=== PATIENT | male | born 1960 | race Two or more races ===

== ENCOUNTER → 2024-12-10 | Outpatient (CLI) | payer BC, SELFPAY ==
[2024-12-10 17:02] LABS: Albumin, Serum 4.3 gm/dL (3.4-4.8); Anion Gap 14 (7-16); BUN/Creatinine Ratio 10 Ratio (12-20); Blood Urea Nitrogen 10 mg/dL (9-23); Calcium 9.4 mg/dL (8.3-10.6); Calcium (Corrected) 9.4 mg/dL (8.5-10.1); Carbon Dioxide 23.1 mMol/L (20.0-31.0); Chloride 93 mMol/L (98-107); Glucose 70 mg/dL (74-106); Osmolality,Calculated 257 (275-295); Phosphorous 4.2 mg/dL (2.4-5.1); Potassium 4.9 mMol/L (3.4-5.1); Sodium 130 mMol/L (136-145); eGFR > 60 See Note
== END | disposition home or self-care (01) ==
LOC: COPL 14:48
PROVIDERS: PCP Internal Medicine; Referring Provider Internal Medicine; Visit Provider Internal Medicine
DX: I10 Essential (primary) hypertension (principal)
CPT/HCPCS: 36415; 80069

== ENCOUNTER 2024-12-17 12:45 | Day surgery (SDC) | payer BC, SELFPAY ==
[2024-12-16 10:59] VITALS: BMI 24.0
[2024-12-17] VITALS (12 sets, daily range): BP systolic 103–136; BP diastolic 64–86; PULSE 72–90; RESP 13–20; TEMP 36.2–36.3; O2SAT 94–99; BMI 23.7
[2024-12-17] MEDS: RINGERS LACTATED 1000 ML 1,000 ML 100 ML IV (13:49)
[2024-12-17] MEDS: DiphenhydrAMINE INJ 50 MG/ML VIAL 25 MG IV (13:51)
[2024-12-17] MEDS: fentaNYL CIT INJ 50 mCg/ML AMP 2ML (ASD USE ONLY) IV (13:52)
[2024-12-17] MEDS: MIDAZOLAM INJ 1 MG/ML VIAL 2 ML (ASD USE ONLY) 2 MG IV (13:55)
== END 2024-12-17 14:42 | disposition home or self-care (01) ==
PROVIDERS: PCP Internal Medicine; Referring Provider Surgery; Visit Provider Surgery
PROC: 0DBE8ZX Excision of Large Intestine, Via Natural or Artificial Opening Endoscopic, Diagnostic (ICD-10-PCS; CPT 45380; principal; 2024-12-17 13:45)
DX: Z12.11 Encounter for screening for malignant neoplasm of colon (principal); K57.30 Diverticulosis of large intestine without perforation or abscess without bleeding
CPT/HCPCS: 45378; J1200; J2250; J3010; J7120

== ENCOUNTER 2024-12-22 07:56 | Inpatient (IN) | payer BC, SELFPAY ==
[2024-12-22] VITALS (15 sets, daily range): BP systolic 150–191; BP diastolic 82–106; PULSE 69–102; RESP 12–28; TEMP 36.5–37.6; O2SAT 96–98; BMI 24.3; BMI 23.4
--- NOTE | 2024-12-22 08:29 | XR_ITS ---
Examination: AP chest single view Technique one AP portable sitting chest single view Exam date and time: December 22, 2024 0734 hours INDICATIONS: Onset chest pain and syncopal episode today. FINDINGS: Normal heart size. No aspiration pneumonia. The osseous structures are intact IMPRESSION: No aspiration pneumonia
--- NOTE | 2024-12-22 08:29 | XR_ITS ---
Examination: CTA chest with intravenous contrast 2-D reconstructions 3-D reconstructions, vascular Date and time of exam: December 22, 2024 1031 hours INDICATIONS: Onset chest pain with syncopal episodes today CTDI: vol (mGy) 13.7 DLP: (mGycm) 366 Technique: Multiple axial sections of the thorax have been obtained. 3 mm slice thickness, from below the hemidiaphragms to above the apices of the lungs. Mediastinal and lung density settings have been obtained. 2-D sagittal and coronal reconstructions. 3-D angiographic renderings, 3-D volume renderings, 3D post processing, vascular maximum intensity projections obtained. Contrast administered 60 cc Isovue-370 Low dose protocols were performed. One or more of the following dose reduction techniques were used; automated exposure control, adjustment of the mA and/or KV according to patient size, use of iterative reconstruction technique. Findings: No thoracic aortic aneurysm dilatation or dissection No pulmonary artery significant enlargement No pulmonary artery filling defects No paratracheal tracheobronchial or bronchopulmonary adenopathy 6 mm pulmonary nodule left upper lobe image 36 No pneumonia or pulmonary edema Severe diffuse fatty infiltration throughout the liver No definite gallstones No pancreatic or adrenal mass IMPRESSION: Negative for pulmonary artery emboli No pneumonia or pulmonary edema 6 mm pulmonary nodule left upper lobe, with this study as baseline recommend 6 month follow-up CT chest without contrast
--- NOTE | 2024-12-22 08:29 | EKG_ITS ---
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
[2024-12-22 09:38] LABS: Base Excess, Venous 0 (-3-3); O2 Saturation, Venous 90 % (96-97); PCO2, Venous 32 mmHg (36-56); PO2, Venous 54 mmHg (15-58); pH, Venous 7.47 (7.33-7.66)
[2024-12-22 09:39] LABS: Basophils % (Auto) 0 % (0-2.5); Eosinophils % (Auto) 0 % (0-10); Hematocrit 32.8 % (41.0-53.0); Hemoglobin 11.8 g/dL (13.5-16.0); Immature Granulocytes % (Auto) 0 % (0-0); Immature Granulocytes Auto 0.02 Thou/mm3 (0.00-0.00); Lymphocytes # (Auto) 0.5 Thou/mm3 (1.0-4.8); Lymphocytes % (Auto) 5 % (10-50); Mean Corpuscular Hemoglobin 33.1 pg (25.0-35.0); Mean Corpuscular Volume 92 fL (80-100); Monocytes # (Auto) 0.5 Thou/mm3 (0.0-0.8); Monocytes % (Auto) 6 % (0-12); Neutrophils # (Auto) 7.9 Thou/mm3 (1.8-7.7); Neutrophils % (Auto) 89 % (37-80); Nucleated Red Blood Cell % 0 /100 WBC (0); Platelet Count 255 Thou/mm3 (140-440); RDW Standard Deviation 41.1 fL (35.1-43.9); Red Blood Count 3.57 Miln/mm3 (4.50-5.90); White Blood Count 8.9 Thou/mm3 (3.8-10.6)
[2024-12-22 09:41] LABS: Lactate (Lactic Acid) 4.5 mMol/L (0.4-2.0)
[2024-12-22 10:02] LABS: B-Type Natriuretic Peptide < 20 pg/mL (0-100)
[2024-12-22 10:04] LABS: Alanine Aminotransferase 60 U/L (10-49); Albumin, Serum 4.3 gm/dL (3.4-4.8); Albumin/Globulin Ratio 1.3 (1.2-2.2); Alkaline Phosphatase 62 U/L (46-116); Anion Gap 13 (7-16); Aspartate Amino Transferase 62 U/L (0-34); BUN/Creatinine Ratio 14 Ratio (12-20); Bilirubin,Total 0.5 mg/dL (0.3-1.2); Blood Urea Nitrogen 14 mg/dL (9-23); Calcium 9.5 mg/dL (8.3-10.6); Calcium (Corrected) 9.5 mg/dL (8.5-10.1); Carbon Dioxide 23.1 mMol/L (20.0-31.0); Chloride 90 mMol/L (98-107); Estimated Creatinine Clearance 72.2 mL/min (>60); Globulin 3.4 gm/dL (2.3-3.5); Glucose 152 mg/dL (74-106); Lipase 45 U/L (12-53); Osmolality,Calculated 256 (275-295); Sodium 126 mMol/L (136-145); Total Protein 7.7 gm/dL (5.7-8.2); Troponin I < 0.020 ng/mL (0.0-0.045); eGFR > 60 See Note
[2024-12-22 10:07] LABS: Prothrombin Time 11.4 Seconds (9.0-12.2)
[2024-12-22] MEDS: ONDANSETRON INJ 2 MG/ML INJ 2 ML 4 MG IV (11:03)
[2024-12-22] MEDS: MORPHINE SULF INJ 10 MG/ML VIAL 4 MG IVP (11:03)
--- NOTE | 2024-12-22 11:56 | PD.EDSYNC ---
ED Syncope RME/HPI General Chief Complaint: Syncope / Near Syncope Stated Complaint: SYNCOPE Time Seen by Provider: 12/22/24 08:28 Arrival date/time: 12/22/24 07:56 RME / HPI RME / HPI narrative: DR. MCCOY MAIN ED EVALUATION: 64 year old male with past medical history significant for hypertension presents to the Emergency Department [facility] with complaint of syncope. Patient comes from [employer] and today he got up to use the restroom and had a syncopal episode. Patient himself does not remember fall or his head contusion. No other injuries or other symptoms reported. Last tetanus was last week. Related Data Home Medications ?Medication ?Instructions ?Recorded ?Confirmed azilsartan medoxomil 80 mg tablet 80 mg PO QDAY 12/17/24 12/17/24 (Edarbi) doxazosin 2 mg tablet 2 mg PO QDAY 12/17/24 12/17/24 metoprolol succinate 50 mg 50 mg PO .qhs 12/17/24 12/17/24 tablet,extended release 24 hr Allergies Allergy/AdvReac Type Severity Reaction Status Date / Time No Known Allergies Allergy Verified 12/17/24 13:05 Review of Systems Review of Systems Systems Reviewed: All systems reviewed, normal except as documented Narrative Review of Systems: Constitutional: DENIES: fevers; Eyes: DENIES: loss of vision; Head/Ear/Nose: DENIES: loss of hearing. Throat: DENIES: dysphagia. Cardiovascular: DENIES: chest pain, dyspnea, or syncope. Respiratory: DENIES: shortness of breath; Gastrointestinal: DENIES: rectal bleeding or melena. Genitourinary: DENIES: dysuria (painful or difficult urination); Musculoskeletal: DENIES: arthralgia (pain in a joint); Skin: DENIES: rash; Neurological: POSITIVES: syncopal episode, loss of memory, head contusion; DENIES: loss of function or movement; Psychiatric: DENIES: recent major life stressor, emotional problem, illicit drug use or abuse; Endocrinology: DENIES: weight change,; Hematologic/Lymphatic: DENIES: abnormal bruising. Allergic/Immunologic: DENIES: urticaria (hives). Past Medical History Past Medical History CARDIAC: Positive Hypertension Social History SMOKING STATUS: Never smoker SUBSTANCE USE: does not use ALCOHOL: Never ED Exam Narrative Physical exam: Physical Exam: General: The vital signs were reviewed. Has a hematoma to his forehead with a minimal abrasion on his eyebrow and the hematoma otherwise the patient is non-toxic, in no apparent distress and appears healthy with a patent airway, no respiratory distress and has no apparent circulatory problems. Head & Scalp: Normocephalic, atraumatic. Face: Appears normal and is without lesions, deformity. Ears: Left external pinna appears normal. Right external pinna appears normal. Eyes: The sclera is anicteric. No obvious photophobia. The Left and Right Orbit/Lid/Conjunctiva appears normal without swelling, discoloration or injection. Nose: The nose is without deformity, discharge or tenderness; Throat: Appears normal. The mucous membranes are pink and moist without exudates, redness or mass seen. The tongue appears normal. Neck: The neck is supple and no apparent mass or adenopathy. Chest: The chest wall is normal in size and symmetry and has no chest wall tenderness or crepitus. The patient displays normal ventilator effort without retractions, accessory muscle use and has adequate air movement bilaterally with no wheezes and no rales. Cardiovascular: Regular rate and rhythm; No murmurs, rubs, or gallops; Gastrointestinal: The abdomen appears normal. No obvious hernias or mass. The abdomen is soft and benign, non-distended, with no pain, no guarding and no rebound tenderness. Bowel sounds are present and normal sounding. No CVA tenderness. Genitourinary: Back/Spine: Extremities/Musculoskeletal/lymphatic: The bilateral upper and lower extremities are warm. There is no evidence of arterial insufficiency. There is no evidence of venous insufficiency/edema. The patient spontaneously moves bilateral upper and lower extremities with no pain and no limitation of movement. There is no apparent, injury or trauma. Skin: The skin is warm, dry and intact. No rashes. No petechia. No purpura. No abnormal bruising. The color is appropriate with no cyanosis. Mental status/Psychiatric: Mental status is appropriate for age. The patient has no apparent delusions, visual hallucinations, no apparent audible hallucinations. The patient has no apparent suicidal thoughts/ideation and no apparent homicidal thoughts/ideation. Neurological: The patient is awake, alert, interactive, cordial, cooperative and is oriented to name and situation. The patient follows commands and answers historical question with no impairment. There is no visual disturbance apparent. The pupils are equal and reactive bilaterally with normal eye movements and no diplopia The bilateral upper and lower extremities have normal strength, normal range of motion and normal functioning. The gait, station and balance appear to be baseline with no acute change Course Quality Measures none Orders Category Date Time Status CT Screening NOW Care 12/22/24 08:29 Active EKG (ED ONLY) *Do not use* NOW Care 12/22/24 08:[address] angio chest Stat Exams 12/22/24 08:[address] head/brain wo con Stat Exams 12/22/24 14:31 Completed EKG (ED Only) Stat Exams 12/22/24 08:29 Draft XR chest 1V portable Stat Exams 12/22/24 08:29 Completed B-Type Natriuretic Peptide Stat Lab 12/22/24 09:02 Completed Blood Culture (Lab) Stat Lab 12/22/24 09:02 Received CBC Stat Lab 12/22/24 09:02 Completed Comprehensive Metabolic Panel Stat Lab 12/22/24 09:02 Completed Drug Screen,Urine Stat Lab 12/22/24 12:50 Completed Lactate (Lactic Acid) Stat Lab 12/22/24 09:02 Completed Lactic Acid, 3 HR Stat Lab 12/22/24 13:07 Completed Lipase Stat Lab 12/22/24 09:02 Completed Magnesium Stat Lab 12/22/24 09:02 Completed Osmolality, Serum* Stat Lab 12/22/24 14:36 Ordered Osmolality, Urine* Stat Lab 12/22/24 14:36 Ordered Prothrombin Time with INR Stat Lab 12/22/24 09:02 Completed Sodium,Urine Random Stat Lab 12/22/24 14:36 Ordered T4 (Thyroxine) Stat Lab 12/22/24 14:48 Completed Thyroid Stimulating Hormone Stat Lab 12/22/24 14:48 Completed Troponin I Stat Lab 12/22/24 09:02 Completed Troponin I Stat Lab 12/22/24 14:48 Completed Urinalysis, C/S if Indicated Stat Lab 12/22/24 12:50 Completed Venous Blood Gas Stat Lab 12/22/24 09:02 Completed Morphine Inj Med 12/22/24 10:57 Discontinued 4 mg IVP X1 ONE Ondansetron Inj [Zofran Inj] Med 12/22/24 10:57 Discontinued 4 mg IV X1 ONE Sodium Chloride 0.9% 1000 ml [Ns] 1,000 ml Med 12/22/24 12:36 Discontinued IV 999 mls/hr Sodium Chloride 0.9% 1000 ml [Ns] 1,000 ml Med 12/22/24 14:45 Discontinued IV 999 mls/hr TET,DIP/PERT AC (Adult)-Tdap [Boostrix Adult (Tdap) Med 12/22/24 14:30 Discontinued Vacc] 0.5 ml IMI .ONCE ONE Vital Signs Vital signs: Vital Signs Temperature 97.7 F 12/22/24 08:09 Pulse Rate 95 12/22/24 08:09 Respiratory Rate 17 12/22/24 08:09 Blood Pressure 150/83 H 12/22/24 08:09 Pulse Oximetry (%) 96 12/22/24 08:09 Oxygen Delivery Method Room Air 12/22/24 08:09 Syncope MDM Narrative MDM Narrative:: Patient presents with a syncopal event while at work at the [employer] system. He has never had a syncopal event before. It was witnessed by one of his coworkers states that within 30 seconds he was pretty much back to his baseline there was no tonic-clonic activity noted. There is no history of seizures. He has no chest pain no shortness of breath. He fell and hit his head has a small hematoma 3 cm on the left forehead. With a slight abrasion. No laceration or repair is required. Medical workup for syncope was initiated with the following results and note at 1300 hrs. the UA is still not back or collected. White count is 8.9 hemoglobin is 11.8 MCV is 92 is got 89% neutrophils PT/INR 11.4 and 1.0 venous blood gas shows a pH of 747 pCO2 of 32 consistent with a metabolic alkalosis by the way there is no noted hyperventilation or anxiety issue noted. Sodium is slightly low at 126 potassium 4.0 chloride is 90 CO2 23 anion gap 13 BUN 14 creatinine 1.0 glucose is 152 osmolality slightly low at 256 lactic acid came back elevated 4.5 there is no old 1 to compare to. Calcium is normal at 9.5 bilirubin is total is 0.5 and AST ALT are 62 and 60 respectively. EKG was done she reveals some borderline sinus tachycardia there was no ST elevation GA noted. Chest x-ray reveals no hemopneumothorax normal heart silhouette lung esquivel are clear because of the syncope a chest CT was done which reveals no PE there is no pneumonia there is no pneumonia. There is an incidental small nodule of uncertain significance that will need follow-up. Reevaluation of the patient at 1230 reveals the patient be alert awake there is no nausea vomiting he is actually hungry. Nurse was going to try to get some urine out of him I am also giving him a liter of fluid as patient reports he holds his urine for long periods of time while on duty. There is no chest infection going on there is no obvious flu symptoms. And the etiology of the syncope so far is unclear. Because he is mentating well the has not been vomiting I see no reason to scan his head. He is not on blood thinners CT read by myself reveals no obvious acute blood. There is a little atrophy superior aspect of the cortices.. There is no fracture and some interesting calcification in the parenchyma of uncertain etiology consider cysticercosis Formal read is still pending. I called back Dr. Krishnan and evidently Dr. Wood will be admitting this patient for syncope. Diane Graves, am scribing for and in the presence of Dr. Mccoy. Patient data External records reviewed:: EMS form Clinical information provided by:: patient, EMS and law enforcement Social determinants that could affect healthcare access:: none Patient has the following chronic illnesses:: hypertension How is presenting disease/condition affected by chronic disease/condition?: uneffected by Evaluation data The following diagnostics were reviewed and interpreted by me:: lab results, radiology exam(s) and EKG tracing(s) (EKG#1: EKG at 0917 hours. Interpreted by me: sinus rhythm, rate 98, no STEMI) Lab and/or radiology exams considered but not ordered:: none Interpretation Summary: See above under MDM narrative. RADIOLOGY Procedure(s): XR chest 1V portable Accession Number(s): [id number] cc: Romel Mccoy MD; David Tyson MD~ Examination: AP chest single view Technique one AP portable sitting chest single view Exam date and time: December 22, 2024 0734 hours INDICATIONS: Onset chest pain and syncopal episode today. FINDINGS: Normal heart size. No aspiration pneumonia. The osseous structures are intact IMPRESSION: No aspiration pneumonia Dictated By: David Tyson MD Procedure(s): CT angio chest Accession Number(s): [id number] cc: Romel Mccoy MD; David Tyson MD; NO PRIMARY/FAMILY,PHYSICIAN~ Examination: CTA chest with intravenous contrast 2-D reconstructions 3-D reconstructions, vascular Date and time of exam: December 22, 2024 1031 hours INDICATIONS: Onset chest pain with syncopal episodes today CTDI: vol (mGy) 13.7 DLP: (mGycm) 366 Technique: Multiple axial sections of the thorax have been obtained. 3 mm slice thickness, from below the hemidiaphragms to above the apices of the lungs. Mediastinal and lung density settings have been obtained. 2-D sagittal and coronal reconstructions. 3-D angiographic renderings, 3-D volume renderings, 3D post processing, vascular maximum intensity projections obtained. Contrast administered 60 cc Isovue-370 Low dose protocols were performed. One or more of the following dose reduction techniques were used; automated exposure control, adjustment of the mA and/or KV according to patient size, use of iterative reconstruction technique. Findings: No thoracic aortic aneurysm dilatation or dissection No pulmonary artery significant enlargement No pulmonary artery filling defects No paratracheal tracheobronchial or bronchopulmonary adenopathy 6 mm pulmonary nodule left upper lobe image 36 No pneumonia or pulmonary edema Severe diffuse fatty infiltration throughout the liver No definite gallstones No pancreatic or adrenal mass IMPRESSION: Negative for pulmonary artery emboli No pneumonia or pulmonary edema 6 mm pulmonary nodule left upper lobe, with this study as baseline recommend 6 month follow-up CT chest without contrast Dictated By: David Tyson MD Medications / Prescriptions Medications or Prescriptions considered but not ordered:: none Medication administrations:: Medication Administration History Discontinued Medications Diphtheria/Tetanus/Acell Pertussis (Diphth,Pertuss(Acell),Tet Vac 0.5 Ml Syr- Adult) 0.5 ml IMi .ONCE ONE Stop: 12/22/24 14:31 Last Admin: 12/22/24 14:58 Dose: Not Given Documented By: DANIELA Non-Admin Reason: Patient Exempt Sodium Chloride (Ns) 1,000 mls @ 999 mls/hr IV .Q1H1M ONE Stop: 12/22/24 13:36 Last Infusion: 12/22/24 14:36 Dose: Infused Documented By: Admin: 12/22/24 12:55 Dose: 999 mls/hr Documented By: DANIELA Sodium Chloride (Ns) 1,000 mls @ 999 mls/hr IV .Q1H1M ONE Stop: 12/22/24 15:45 Last Admin: 12/22/24 14:55 Dose: 999 mls/hr Documented By: DANIELA Morphine Sulfate (Morphine Sulf Inj 10 Mg/Ml Vial) 4 mg IVP X1 ONE Stop: 12/22/24 10:58 Last Admin: 12/22/24 11:03 Dose: 4 mg Documented By: DANIELA Ondansetron HCl (Ondansetron Inj 2 Mg/Ml Inj 2 Ml) 4 mg IV X1 ONE; Protocol Stop: 12/22/24 10:58 Last Admin: 12/22/24 11:03 Dose: 4 mg Documented By: DANIELA see above Consultations Consultation(s) initiated? (list below): Yes Consultation #1 (Physician, Specialty, Details): Discussed test HPI, PMHx, lab, radiology results and/or management with hospitalist. Will admit for further evaluation and management. But first would like a head CT to be back negative. Time: 14:31 Diagnosis Syncope Differential Diagnosis: syncope due to orthostatic hypotension, vasovagal syncope, subarachnoid hemorrhage, pulmonary embolism and dehydration Most likely diagnosis given after review of the tests above:: see below Admission Indicated Admission indicated?: indicated Admission Request Was there a request for admission?: Yes Admission Attestation Admission request attestation: Discussed case with [] from Hospitalist service regarding admission. Discussed patients ED course, exam findings, labs, and radiology results. The Hospitalist [agrees,declines] to accept the patient for admission. Disposition Plan Disposition Plan: Admit Discharge Plan Plan Patient Disposition: Admit Acute Care w/in Hospital Disposition Comment: Hospitalist to admit Prescriptions/Referrals Prescriptions/Med Rec: No Action metoprolol succinate 50 mg tablet extended release 24 hr 50 mg PO .qhs Patient Comments: TAKE 1 TABLET BY MOUTH AT BEDTIME doxazosin 2 mg tablet 2 mg PO QDAY Patient Comments: TAKE 1 TABLET BY MOUTH DAILY Edarbi 80 mg tablet 80 mg PO QDAY Patient Comments: TAKE 1 TABLET BY MOUTH DAILY Referrals: No Primary/Family,Physician [Primary Care Provider] - In 1 week Problem List Clinical Impression: Syncope, Acute hyponatremia, Elevated lactic acid level, Contusion of head, Hematoma Patient/Caregiver Discharge Instructions Print Language: Italian Stand Alone Forms: Caitlyn Award Info., Patient Portal Info Letter
[2024-12-22 12:28] LABS: Reflex Lactate? Y
[2024-12-22] MEDS: SODIUM CHLORIDE 0.9% 1000 ML 1,000 ML 999 ML IV ×2 (12:55→14:55)
[2024-12-22 13:07] LABS: Squamous Epithelial Cell,Urine 0 /hpf (0-5)
[2024-12-22 13:11] LABS: Lactic Acid, 3 HR 3.2 mMol/L (0.4-2.0)
[2024-12-22 13:28] LABS: Bilirubin,Urine Negative (Negative); Blood,Urine Negative (Negative); Clarity,Urine Clear (Clear/Hazy); Culture Indicated,Urine Not Indicated; Glucose, Urine Trace (Negative); Ketones,Urine Trace (Negative); Leukocyte Esterase,Urine Negative (Negative); Nitrite,Urine Negative (Negative); PH,Urine 6.5 (5.0-7.0); Protein,Urine Negative (Neg - Trace); RBC,Urine 1 /hpf (0-3); Specific Gravity,Urine 1.029 (1.001-1.035); Urobilinogen,Urine Negative mg/dL (0.0-1.0); WBC,Urine 1 /hpf (0-5)
[2024-12-22 13:32] LABS: Collection Type, Urine Clean Catch; Color,Urine Lt-Yellow (Lt Yel-Yel)
[2024-12-22 13:44] LABS: Amphetamine/Methamp Scrn,U Negative (Negative); Barbiturate Screen,Urine Negative (Negative); Benzodiazepines Screen,Urine Negative (Negative); Benzoylecgonine Screen, Ur Negative (Negative); Fentanyl Screen,Urine Negative (Negative); Opiate Screen,Urine Positive (Negative); THC Screen,Urine Negative (Negative)
--- NOTE | 2024-12-22 14:31 | XR_ITS ---
Examination: CT brain head without contrast. 2-D sagittal coronal reconstructions Date and time of exam:December 22, 2024 at 1510 hours INDICATIONS: Syncopal episode today, patient fell with injury to the head CTDI: vol (mGy):52.4 DLP: (mGycm):1079 Technique: Multiple CT axial sections of the brain have been obtained, 5 mm slice thickness. Contrast has not been administered. 2-D sagittal, coronal reconstructions have been obtained Low dose protocols were performed. One or more of the following dose reduction techniques were used; automated exposure control, adjustment of the mA and/or KV according to patient size, use of iterative reconstruction technique. Findings: No significant ventricular enlargement. Intra-axial or extra-axial hemorrhage density is not seen. No mass effect or midline shift Basal cisterns are not remarkable. Fourth ventricle is midline. Cranial vault intact. Soft tissue left frontal scalp swelling Significant left frontal left ethmoid sinusitis Impression: Negative for acute hemorrhage, mass effect or midline shift
[2024-12-22 15:20] LABS: T4 (Thyroxine) 4.3 mcg/dL (4.5-10.9); Thyroid Stimulating Hormone 0.45 uIU/mL (0.55-4.78); Troponin I < 0.020 ng/mL (0.0-0.045)
--- NOTE | 2024-12-22 18:23 | XR_ITS ---
Examination: Abdomen sonogram, Limited Date and time of exam: December 22, 2024 1841 hours INDICATIONS: Alcohol abuse history, elevated liver function tests on laboratory examination today Technique: Real-time iglesias scale transabdominal sonographic images of the upper abdomen obtained. Findings: Normal gallbladder Normal common bile duct 0.32 cm Pancreas obscured by bowel gas Liver 16 cm fatty infiltration Normal hepatopedal portal venous flow Patent IVC IMPRESSION: Normal gallbladder Mild hepatomegaly fatty infiltration
[2024-12-22] MEDS: MORPHINE SULF INJ 10 MG/ML VIAL 2 MG IVP (18:27)
[2024-12-22] MEDS: SODIUM CHLORIDE 0.9% 1000 ML 1,000 ML 80 ML IV (18:35)
[2024-12-22 18:59] LABS: Creatine Kinase 307 U/L (34-171); Sodium 133 mMol/L (136-145)
--- NOTE | 2024-12-22 20:11 | ESHP_ITS ---
<Statement entered by Daljit Hope MD - 12/22/24 20:37> This patient is a 64-year-old male with past medical history of hypertension was brought in from the senior living with complaint of syncope. Patient got up to use the restroom and had a syncopal episode and hit his head on the ground. He did not recall fall or head contusion. No other injuries were reported. Tetanus toxoid, 2 L bolus of fluid and morphine was given. Vitals showed elevated blood pressure 170/96. He was saturating well on room air and afebrile. Labs were significant for normocytic anemia coagulation panel unremarkable. Chemistry panel was significant for hyponatremia sodium 126 with serum osmolality 256. Lactic acid was 4.5 down trended to 3.2. Kidney functions show baseline creatinine 1.0. A1c from 2023 5.8. Troponin I was negative. Mildly elevated AST and ALT. UA was negative. U tox positive for opiates. Chest x-ray showed no aspiration pneumonia. Chest CT was significant for 6 mm pulmonary nodule left upper lobe. EKG showed sinus rhythm with QTc 425. Blood cultures were sent. Patient is admitted for workup of syncope. Will likely order urine electrolytes, started on fluids continue to monitor sodium every [address] showed no acute changes. We admit the patient for syncope versus seizure workup as well as hyponatremia. Neurology has been consulted to evaluate the for seizures. Ordered creatinine kinase. Will likely do an EEG as well to rule out seizures. Sodium corrected quickly therefore we stopped normal saline and started D5W at 100 cc/h. Patient has a history of alcohol use therefore CIWA protocol was added. Continue with neurochecks. Will follow-up with the EEG and orthostatic vitals. All labs and orders were reviewed. I saw and examined the patient, and I agree with current management stated by Dr Christina MD,PGY1. Plan of care was discussed with the attending physician and resident physician. Disclaimer: Despite multiple revisions, due to the dictation software being used, the document bellow may not be free of grammatical errors including phonetic/typographic errors. However, this does not deter from our commitment to providing health care in the patient's best interest in mind. Dr. Joao MD, PGY 2 Documentation for date of: 12/22/24 HPI History of Present Illness History of present illness: Maximo Summers is a 64-year-old male with a past medical history of hypertension who presents to the ED after syncopal episode leading to ground-level fall with head strike. Event was witnessed by coworker (not present at bedside), and reported that patient fell forward onto his head and was unconscious for 10 to 15 seconds without any seizure-like activity noted. Patient does not recall falling, was not confused afterwards, did not bite his lips or cheeks, but did have an episode of urinary incontinence. He does not recall any focal weakness or paresthesias prior to event. States that he has not had a history of syncopal events. In ED, BP 150/83 but otherwise vital signs stable. Labs significant for hemoglobin of 11.8, Na of 126, serum osmolality of 256, lactate of 4.5, AST 62, ALT 60, troponin and BNP negative. EKG showed sinus rhythm, CXR negative. CT head negative for acute hemorrhage, mass effect, or midline shift. Admitted for further management of chronic hyponatremia and workup for syncope. PMHx: Hypertension Medications: Doxazosin, Edarbi, metoprolol succinate SHx: Endorses drinking 2-4 beers on most days with some days drinking up to 12- 18 beers per day, denies smoking cigarettes or illicit drug use Review of Systems Review of Systems Systems Reviewed: All systems reviewed, normal except as documented Exam Vital Signs Temp Pulse Resp BP Pulse Ox O2 Del Method 99.7 F 82 12 188/100 H 96 Room Air 12/22/24 18:36 12/22/24 19:42 12/22/24 18:36 12/22/24 19:42 12/22/24 18:36 12/22/24 18:36 Narrative Exam General: AOx3, no acute distress, able to speak full sentences HEENT: Small contusion above forehead, NC/AT, mucous membranes moist, bilateral sclera anicteric Cardiovascular: regular rate and rhythm, S1/S2 present, no murmurs appreciated Pulmonary: clear to auscultation bilaterally, no rales/rhonchi/wheezes Abdominal: soft, non-tender, non-distended, no rebound/guarding, normal bowel sounds present Musculoskeletal: normal ROM, no peripheral edema Skin: warm and dry, intact, no rashes Neuro: CN II-XII intact, no focal deficits, strength 5 out of 5 bilaterally in upper and lower extremities, sensation grossly intact Results: Labs 12/22/24 09:02 12/22/24 18:30 Labs: Short CBC 12/22/24 Range/Units 09:02 WBC 8.9 (3.8-10.6) Thou/mm3 Hgb 11.8 L (13.5-16.0) g/dL Hct 32.8 L (41.0-53.0) % Plt Count 255 (140-440) Thou/mm3 BMP 12/22/24 12/22/24 09:02 18:30 Sodium 126 L 133 L Potassium 4.0 Chloride 90 L Carbon Dioxide 23.1 BUN 14 Creatinine 1.0 Glucose 152 H Calcium 9.5 Cardiac Enzymes 12/22/24 12/22/24 12/22/24 Range/Units 09:02 14:48 18:30 Total Creatine Kinase 307 H (34-171) U/L Troponin I < 0.020 < 0.020 (0.0-0.045) ng/mL Liver Function 12/22/24 Range/Units 09:02 Total Bilirubin 0.5 (0.3-1.2) mg/dL AST 62 H (0-34) U/L ALT 60 H (10-49) U/L Alkaline Phosphatase 62 (46-116) U/L Albumin 4.3 (3.4-4.8) gm/dL Urine 12/22/24 Range/Units 12:50 Urine Color Lt-Yellow (Lt Yel-Yel) Urine Clarity Clear (Clear/Hazy) Urine pH 6.5 (5.0-7.0) Ur Specific [place] 1.029 (1.001-1.035) Urine Protein Negative (Neg - Trace) Urine Glucose (UA) Trace (Negative) ABG Interpretation ABG results: 12/22/24 09:02 VBG pH 7.47 VBG pCO2 32 L VBG pO2 54 VBG Base Excess 0 Quality Measures Quality Measures none Medications Home Medications and Allergies Home Medications ?Medication ?Instructions ?Recorded ?Confirmed ?Type azilsartan medoxomil 80 mg tablet 80 mg PO QDAY 12/17/24 History (Edarbi) doxazosin 2 mg tablet 2 mg PO QDAY 12/17/24 History metoprolol succinate 50 mg 50 mg PO .qhs 12/17/2411/29 History tablet,extended release 24 hr Allergies Allergy/AdvReac Type Severity Reaction Status Date / Time No Known Allergies Allergy Verified 12/22/24 20:49 Visit Medications Acetaminophen (Acetaminophen 325 Mg Tablet) 650 mg PO Q6H PRN PRN Reason: PAIN OR FEVER > 100.4 Stop: 01/21/25 17:56 Hydrocodone Bitart/Acetaminophen (Hydrocodone/Apap 5/325 Tablet) 1 tab PO Q6HR PRN PRN Reason: PAIN SCALE 4-10(Mod-Sev Stop: 12/27/24 17:56 Heparin Sodium (Porcine) (Heparin Sod Inj 5000 Unit/Ml Vial) 5,000 unit SC BID JOSEFA Stop: 01/05/25 20:59 Dextrose (D5w) 1,000 mls @ 100 mls/hr IV .Q10H JOSEFA Stop: 12/23/24 05:29 Morphine Sulfate (Morphine Sulf Inj 10 Mg/Ml Vial) 2 mg IVP Q4HR PRN PRN Reason: BREAKTHROUGH PAIN Stop: 12/27/24 17:56 Last Admin: 12/22/24 18:27 Dose: 2 mg Ondansetron HCl (Ondansetron Inj 2 Mg/Ml Inj 2 Ml) 4 mg IV Q6H PRN; Protocol PRN Reason: NAUSEA OR VOMITING Stop: 01/21/25 17:56 Discontinued Medications Diphtheria/Tetanus/Acell Pertussis (Diphth,Pertuss(Acell),Tet Vac 0.5 Ml Syr- Adult) 0.5 ml IMi .ONCE ONE Stop: 12/22/24 14:31 Last Admin: 12/22/24 14:58 Dose: Not Given Sodium Chloride (Ns) 1,000 mls @ 999 mls/hr IV .Q1H1M ONE Stop: 12/22/24 13:36 Last Infusion: 12/22/24 14:36 Dose: Infused Sodium Chloride (Ns) 1,000 mls @ 999 mls/hr IV .Q1H1M ONE Stop: 12/22/24 15:45 Last Infusion: 12/22/24 15:56 Dose: Infused Sodium Chloride (Ns) 1,000 mls @ 80 mls/hr IV .[id number] JOSEFA Stop: 12/23/24 18:14 Last Admin: 12/22/24 18:35 Dose: 80 mls/hr Morphine Sulfate (Morphine Sulf Inj 10 Mg/Ml Vial) 4 mg IVP X1 ONE Stop: 12/22/24 10:58 Last Admin: 12/22/24 11:03 Dose: 4 mg Ondansetron HCl (Ondansetron Inj 2 Mg/Ml Inj 2 Ml) 4 mg IV X1 ONE; Protocol Stop: 12/22/24 10:58 Last Admin: 12/22/24 11:03 Dose: 4 mg Assessment & Plan Plan Maximo Kay is a 64-year-old male with a past medical history of hypertension is admitted for management of syncopal event with ground-level fall and chronic hyponatremia. #Syncope secondary to vasovagal vs seizure #Ground-level fall with head strike Presented with syncopal event associated with bowel movement, causing ground- level fall and head strike. Has never happened before. No reported seizure- like activity or postictal state but did have episode of urinary incontinence. No history of arrhythmias, no murmurs heard on auscultation, and no FNDs/slurred speech/facial droop. CT head negative for hemorrhage, mass effect, or midline shift. EKG showed normal sinus rhythm. Lactate of 4.5 that downtrended to 3.2 after 2 L IVF. Total CK 307. ? Neurology consulted, appreciate recommendations ? EEG ordered ? Follow-up orthostatic vitals ? Neurochecks ? Will defer echo for now given that no murmurs auscultated on exam #Hypoosmolar hyponatremia Received 2 L IVF in ED. Serum osm 256. Initial sodium of 126, with goal corrected rate of 4-6 mMol/L in 24 hours. ? Repeat Na increased to 133 so D5W started at 100 cc/h (1 L) ? Every 4 sodium checks ? Urine osm #Alcohol dependence #Mild transaminitis Endorses drinking 2-4 beers per day, with days drinking 12-18 beers per day. Abdominal ultrasound showed mild hepatomegaly with fatty infiltration. AST 62, ALT 60. ? CIWA protocol #Secondary hypothyroidism TSH 0.45, T44.3. Consider starting levothyroxine. #Pulmonary nodule 6 mm pulmonary nodule left upper lobe. ? Recommend 6-month follow-up CT without contrast outpatient Hospital management: Disposition: Pending syncope workup and management of hyponatremia Fluids: D5W Diet: Low-sodium Lines: PIV DVT prophylaxis: Heparin SC BID GI prophylaxis: Not indicated CODE STATUS: full code ----- Plan discussed with attending physician Dr. Wood and senior resident physician Dr. Joao Vasquez MD PGY-1 Internal Medicine
[2024-12-22] MEDS: THIAMINE 100 MG TABLET PO (21:30)
[2024-12-22] MEDS: FOLIC ACID 1 MG TABLET PO (21:30)
[2024-12-22] MEDS: HEPARIN SOD INJ 5000 UNIT/ML VIAL SC (21:31)
[2024-12-22] MEDS: DEXTROSE 5%-WATER 1,000 ML 100 ML IV (21:44)
[2024-12-22] MEDS: METOPROLOL SUCCINATE XL 25 MG TABCR 50 MG PO (21:44)
--- NOTE | 2024-12-22 21:55 | PC.NURSE ---
Report given to ASHA Merchant
[2024-12-22 22:03] LABS: Sodium,Urine Random 27.2 mMol/L (20.0-110.0)
[2024-12-22] MEDS: DOXAZOSIN MESYLATE 2 MG TABLET PO (22:56)
[2024-12-23] VITALS (11 sets, daily range): BP systolic 140–169; BP diastolic 75–95; PULSE 60–99; RESP 17–20; TEMP 36.1–36.7; O2SAT 96–99
[2024-12-23 00:41] LABS: Lactate (Lactic Acid) 1.5 mMol/L (0.4-2.0)
[2024-12-23 05:51] LABS: Lactate (Lactic Acid) 0.7 mMol/L (0.4-2.0)
[2024-12-23] MEDS: HYDROcodone/APAP 5/325 TABLET 1 TAB PO ×3 (05:58→19:43)
[2024-12-23 06:03] LABS: Basophils % (Auto) 0 % (0-2.5); Eosinophils % (Auto) 0 % (0-10); Hematocrit 31.3 % (41.0-53.0); Hemoglobin 11.2 g/dL (13.5-16.0); Immature Granulocytes % (Auto) 0 % (0-0); Immature Granulocytes Auto 0.01 Thou/mm3 (0.00-0.00); Lymphocytes % (Auto) 20 % (10-50); Mean Corpuscular HGB Conc 35.8 g/dl (31.0-37.0); Mean Corpuscular Volume 92 fL (80-100); Monocytes # (Auto) 0.8 Thou/mm3 (0.0-0.8); Monocytes % (Auto) 16 % (0-12); Neutrophils # (Auto) 3.1 Thou/mm3 (1.8-7.7); Neutrophils % (Auto) 63 % (37-80); Nucleated Red Blood Cell % 0 /100 WBC (0); Platelet Count 218 Thou/mm3 (140-440); RDW Standard Deviation 41.5 fL (35.1-43.9); Red Blood Count 3.39 Miln/mm3 (4.50-5.90); White Blood Count 4.9 Thou/mm3 (3.8-10.6)
[2024-12-23 06:33] LABS: Alanine Aminotransferase 42 U/L (10-49); Albumin, Serum 3.7 gm/dL (3.4-4.8); Albumin/Globulin Ratio 1.3 (1.2-2.2); Alkaline Phosphatase 53 U/L (46-116); Anion Gap 8 (7-16); Aspartate Amino Transferase 39 U/L (0-34); BUN/Creatinine Ratio 9 Ratio (12-20); Bilirubin,Total 0.9 mg/dL (0.3-1.2); Blood Urea Nitrogen 7 mg/dL (9-23); Calcium 8.7 mg/dL (8.3-10.6); Calcium (Corrected) 8.9 mg/dL (8.5-10.1); Carbon Dioxide 24.5 mMol/L (20.0-31.0); Chloride 98 mMol/L (98-107); Creatinine (Component) 0.8 mg/dL (0.6-1.3); Estimated Creatinine Clearance 90.3 mL/min (>60); Globulin 2.9 gm/dL (2.3-3.5); Glucose 81 mg/dL (74-106); Magnesium 2.1 mg/dL (1.6-2.6); Osmolality,Calculated 257 (275-295); Phosphorous 3.6 mg/dL (2.4-5.1); Sodium 130 mMol/L (136-145); Total Protein 6.6 gm/dL (5.7-8.2); eGFR > 60 See Note
[2024-12-23] MEDS: METOPROLOL SUCCINATE XL 25 MG TABCR 50 MG PO (09:10)
[2024-12-23] MEDS: FOLIC ACID 1 MG TABLET PO ×2 (09:10→21:17)
[2024-12-23] MEDS: HEPARIN SOD INJ 5000 UNIT/ML VIAL SC ×2 (09:11→21:17)
[2024-12-23] MEDS: THIAMINE 100 MG TABLET PO ×2 (09:13→21:17)
[2024-12-23 09:29] LABS: Sodium 129 mMol/L (136-145)
--- NOTE | 2024-12-23 10:50 | CHAP ---
Patient was visited by a Spiritual Care Volunteer on 12/23/2024 between 0910 and [id number] and received comfort, encouragement and/or prayer.
--- NOTE | 2024-12-23 11:12 | ESPR_ITS ---
<Statement entered by Daljit Hope MD - 12/23/24 14:43> Patient was seen and examined at the bedside. No acute overnight events were reported. No episodes of syncope or seizures were recorded. Vitals were stable. Overnight, patient's sodium rapidly corrected therefore D5W at 100 cc was given. Current sodium at 129. Hemoglobin around 11. Currently waiting for EEG and further neurology recommendations. PT evaluation pending. All labs and orders were reviewed. I saw and examined the patient, and I agree with current management stated by Dr Christina MD,PGY1. Plan of care was discussed with the attending physician and resident physician. Disclaimer: Despite multiple revisions, due to the dictation software being used, the document bellow may not be free of grammatical errors including phonetic/typographic errors. However, this does not deter from our commitment to providing health care in the patient's best interest in mind. Dr. Herminia MD, PGY 2 Documentation for date of: 12/23/24 Subjective Subjective Interval history: Maximo Summers is a 64-year-old male with a past medical history of hypertension who presents to the ED after syncopal episode leading to ground-level fall with head strike. Event was witnessed by coworker (not present at bedside), and reported that patient fell forward onto his head and was unconscious for 10 to 15 seconds without any seizure-like activity noted. Patient does not recall falling, was not confused afterwards, did not bite his lips or cheeks, but did have an episode of urinary incontinence. He does not recall any focal weakness or paresthesias prior to event. States that he has not had a history of syncopal events. Admitted for further management of chronic hyponatremia and workup for syncope. 12/23: No acute overnight events noted. No additional episodes of syncope, denies weakness or paresthesia, or any other symptoms at this time. Updated on current plans, including neurology consult and pending EEG. Exam Vital Signs Temp Pulse Resp BP Pulse Ox O2 Del Method 97.1 F 90 18 145/85 H 99 Room Air 12/23/24 08:00 12/23/24 09:10 12/23/24 08:00 12/23/24 09:10 12/23/24 08:00 12/23/24 08:00 Narrative Exam General: AOx3, no acute distress, able to speak full sentences HEENT: Small contusion above forehead, NC/AT, mucous membranes moist, bilateral sclera anicteric Cardiovascular: regular rate and rhythm, S1/S2 present, no murmurs appreciated Pulmonary: clear to auscultation bilaterally, no rales/rhonchi/wheezes Abdominal: soft, non-tender, non-distended, no rebound/guarding, normal bowel sounds present Musculoskeletal: normal ROM, no peripheral edema Skin: warm and dry, intact, no rashes Neuro: CN II-XII intact, no focal deficits, strength 5 out of 5 bilaterally in upper and lower extremities, sensation grossly intact Objective Labs 12/24/24 04:49 12/24/24 04:49 Labs: Laboratory Results - last 24 hr 12/22/24 12/22/24 12/22/24 12:50 13:07 14:48 WBC RBC Hgb Hct MCV MCH MCHC RDW Std Deviation Plt Count Neut % (Auto) Lymph % (Auto) [facility] % (Auto) Eos % (Auto) Baso % (Auto) Neut # (Auto) Lymph # (Auto) [facility] # (Auto) Eos # (Auto) Baso # (Auto) Immature Gran # (Auto) Absolute Nucleated RBC Immature Gran % Nucleated RBC % Sodium Potassium Chloride Carbon Dioxide Anion Gap BUN Creatinine Estim Creat Clear Calc eGFR BUN/Creatinine Ratio Glucose Calculated Osmolality Lactic Acid 3.2 H Calcium Corrected Calcium Phosphorus Magnesium Total Bilirubin AST ALT Alkaline Phosphatase Total Creatine Kinase Troponin I < 0.020 Total Protein Albumin Globulin Albumin/Globulin Ratio TSH 0.45 L Thyroxine (T4) 4.3 L Ur Collection Type Clean Catch Urine Color Lt-Yellow Urine Clarity Clear Urine pH 6.5 Ur Specific [place] 1.029 Urine Protein Negative Urine Glucose (UA) Trace Urine Ketones Trace Urine Blood Negative Urine Nitrite Negative Urine Bilirubin Negative Urine Urobilinogen (Auto) Negative Ur Leukocyte Esterase Negative Urine RBC 1 Urine WBC 1 Ur Squamous Epith Cells 0 Urine Bacteria None Ur Culture Indicated? Not Indicated Ur Random Sodium Urine Opiates Screen Positive A Urine Fentanyl Screen Negative Ur Barbiturates Screen Negative U Amphetamin/Meth Scrn Negative U Benzodiazepines Scrn Negative U Cocaine Metab Screen Negative U Marijuana (THC) Screen Negative 12/22/24 12/22/24 12/23/24 17:34 18:30 00:22 WBC RBC Hgb Hct MCV MCH MCHC RDW Std Deviation Plt Count Neut % (Auto) Lymph % (Auto) [facility] % (Auto) Eos % (Auto) Baso % (Auto) Neut # (Auto) Lymph # (Auto) [facility] # (Auto) Eos # (Auto) Baso # (Auto) Immature Gran # (Auto) Absolute Nucleated RBC Immature Gran % Nucleated RBC % Sodium 133 L Potassium Chloride Carbon Dioxide Anion Gap BUN Creatinine Estim Creat Clear Calc eGFR BUN/Creatinine Ratio Glucose Calculated Osmolality Lactic Acid 1.5 Calcium Corrected Calcium Phosphorus Magnesium Total Bilirubin AST ALT Alkaline Phosphatase Total Creatine Kinase 307 H Troponin I Total Protein Albumin Globulin Albumin/Globulin Ratio TSH Thyroxine (T4) Ur Collection Type Urine Color Urine Clarity Urine pH Ur Specific [place] Urine Protein Urine Glucose (UA) Urine Ketones Urine Blood Urine Nitrite Urine Bilirubin Urine Urobilinogen (Auto) Ur Leukocyte Esterase Urine RBC Urine WBC Ur Squamous Epith Cells Urine Bacteria Ur Culture Indicated? Ur Random Sodium 27.2 Urine Opiates Screen Urine Fentanyl Screen Ur Barbiturates Screen U Amphetamin/Meth Scrn U Benzodiazepines Scrn U Cocaine Metab Screen U Marijuana (THC) Screen 12/23/24 12/23/24 05:30 09:10 WBC 4.9 D RBC 3.39 L Hgb 11.2 L Hct 31.3 L MCV 92 MCH 33.0 MCHC 35.8 RDW Std Deviation 41.5 Plt Count 218 D Neut % (Auto) 63 Lymph % (Auto) 20 [facility] % (Auto) 16 H Eos % (Auto) 0 Baso % (Auto) 0 Neut # (Auto) 3.1 Lymph # (Auto) 1.0 [facility] # (Auto) 0.8 Eos # (Auto) 0.0 Baso # (Auto) 0.0 Immature Gran # (Auto) 0.01 H Absolute Nucleated RBC 0.00 Immature Gran % 0 Nucleated RBC % 0 Sodium 130 L 129 L Potassium 4.0 Chloride 98 Carbon Dioxide 24.5 Anion Gap 8 BUN 7 L Creatinine 0.8 Estim Creat Clear Calc 90.3 eGFR > 60 BUN/Creatinine Ratio 9 L Glucose 81 D Calculated Osmolality 257 L Lactic Acid 0.7 Calcium 8.7 Corrected Calcium 8.9 Phosphorus 3.6 Magnesium 2.1 Total Bilirubin 0.9 AST 39 H ALT 42 Alkaline Phosphatase 53 Total Creatine Kinase Troponin I Total Protein 6.6 Albumin 3.7 D Globulin 2.9 Albumin/Globulin Ratio 1.3 TSH Thyroxine (T4) Ur Collection Type Urine Color Urine Clarity Urine pH Ur Specific [place] Urine Protein Urine Glucose (UA) Urine Ketones Urine Blood Urine Nitrite Urine Bilirubin Urine Urobilinogen (Auto) Ur Leukocyte Esterase Urine RBC Urine WBC Ur Squamous Epith Cells Urine Bacteria Ur Culture Indicated? Ur Random Sodium Urine Opiates Screen Urine Fentanyl Screen Ur Barbiturates Screen U Amphetamin/Meth Scrn U Benzodiazepines Scrn U Cocaine Metab Screen U Marijuana (THC) Screen ABG Interpretation ABG results: 12/22/24 09:02 VBG pH 7.47 VBG pCO2 32 L VBG pO2 54 VBG Base Excess 0 Quality Measures Quality Measures none Assessment & Plan Assessment Current Active Medications: Generic Name Dose Route Start Last Admin Trade Name Freq PRN Reason Stop Dose Admin Acetaminophen 650 mg 12/22/24 17:57 Acetaminophen 325 Mg Tablet PO 01/21/25 17:56 Q6H PRN PAIN OR FEVER > 100.4 Hydrocodone Bitart/Acetaminophen 1 tab 12/22/24 17:57 12/23/24 05:58 Hydrocodone/Apap 5/325 Tablet PO 12/27/24 17:56 1 tab Q6HR PRN Administration PAIN SCALE 4-10(Mod-Sev Dextrose 25 ml 12/22/24 20:39 Dextrose 50%-Water Inj 50 Ml Syringe IV 01/21/25 20:38 Q15MIN PRN BG 50-70 responsive npo pt Dextrose 50 ml 12/22/24 20:39 Dextrose 50%-Water Inj 50 Ml Syringe IV 01/21/25 20:38 Q15MIN PRN BG <50 OR BG <70 & pt unresponsive Doxazosin Mesylate 2 mg 12/22/24 21:00 12/22/24 22:56 Doxazosin Mesylate 2 Mg Tablet PO 01/21/25 20:59 2 mg HS JOSEFA Administration Folic Acid 1 mg 12/22/24 21:00 12/23/24 09:10 Folic Acid 1 Mg Tablet PO 12/27/24 20:59 1 mg BID JOSEFA Administration Glucagon 1 mg 12/22/24 20:39 Glucagon Inj 1 Mg Vial IM Q15MIN PRN BG <70, and no IV access Heparin Sodium (Porcine) 5,000 unit 12/22/24 21:00 12/23/24 09:11 Heparin Sod Inj 5000 Unit/Ml Vial SC 01/05/25 20:59 5,000 unit BID JOSEFA Administration Hydralazine HCl 10 mg 12/22/24 20:40 Hydralazine Inj 20 Mg/Ml Vial IV 01/21/25 20:44 Q6H PRN SBP>180 AND DBP>100 Lorazepam 0.5 mg 12/22/24 20:16 Lorazepam 0.5 Mg Tablet PO 12/27/24 20:15 Q4HR PRN CIWA Score 2-6 Lorazepam 1 mg 12/22/24 20:16 Lorazepam 0.5 Mg Tablet PO 12/27/24 20:15 Q4HR PRN CIWA SCORE 7-11 Lorazepam 2 mg 12/22/24 20:16 Lorazepam 0.5 Mg Tablet PO 12/27/24 20:15 Q4HR PRN CIWA SCORE 12-15 Lorazepam 1 mg 12/22/24 20:16 Lorazepam 2 Mg/Ml Vial IV X1 PRN Breakthrough Agitation Metoprolol Succinate 50 mg 12/22/24 20:50 12/23/24 09:10 Metoprolol Succinate Xl 25 Mg Tabcr PO 01/21/25 20:49 50 mg QDAY JOSEFA Administration Morphine Sulfate 2 mg 12/22/24 17:57 12/22/24 18:27 Morphine Sulf Inj 10 Mg/Ml Vial IVP 12/27/24 17:56 2 mg Q4HR PRN Administration BREAKTHROUGH PAIN Ondansetron HCl 4 mg 12/22/24 17:57 Ondansetron Inj 2 Mg/Ml Inj 2 Ml IV 01/21/25 17:56 Q6H PRN NAUSEA OR VOMITING Protocol Thiamine HCl 100 mg 12/22/24 21:00 12/23/24 09:13 Thiamine 100 Mg Tablet PO 12/27/24 20:59 100 mg BID JOSEFA Administration Plan Maximo Kay is a 64-year-old male with a past medical history of hypertension is admitted for management of syncopal event with ground-level fall and chronic hyponatremia. #Syncope secondary to vasovagal vs seizure #Ground-level fall with head strike Presented with syncopal event associated with bowel movement, causing ground- level fall and head strike. Has never happened before. No reported seizure- like activity or postictal state but did have episode of urinary incontinence. No history of arrhythmias, no murmurs heard on auscultation, and no FNDs/slurred speech/facial droop. CT head negative for hemorrhage, mass effect, or midline shift. EKG showed normal sinus rhythm. Lactate of 4.5 that downtrended to 3.2 after 2 L IVF. Total CK 307. Orthostatics within normal limits. ? Neurology consulted, appreciate recommendations ? EEG ordered ? Neurochecks ? Aspiration precautions ? Seizure precautions ? Follow-up echo #Hypoosmolar hyponatremia Received 2 L IVF in ED. Serum osm 256. Initial sodium of 126, with goal corrected rate of 4-6 mMol/L in 24 hours. Repeat Na increased to 133 so D5W started at 100 cc/h (1 L) ? Salt tablets 1 g p.o. twice daily ? q4hr sodium checks ? Urine osm, send out #Alcohol dependence #Mild transaminitis Endorses drinking 2-4 beers per day, with days drinking up to 12-18 beers per day. Abdominal ultrasound showed mild hepatomegaly with fatty infiltration. AST 62, ALT 60 -> downtrended to 39 and 42, respectively ? CIWA protocol #Secondary hypothyroidism TSH 0.45, T44.3. Consider starting weight-based levothyroxine dose of 1.6 mcg/kg. #Pulmonary nodule 6 mm pulmonary nodule left upper lobe. ? Recommend 6-month follow-up CT without contrast outpatient Hospital management: Disposition: Pending syncope workup and management of hyponatremia Fluids: none Diet: regular Lines: PIV DVT prophylaxis: Heparin SC BID GI prophylaxis: Not indicated CODE STATUS: full code ----- Plan discussed with attending physician Dr. Armstrong and senior resident physician Dr. Herminia Vasquez MD PGY-1 Internal Medicine Attending Provider Attestation/Addendum I reviewed labs, imaging, EKG, home medications and prior available records. Face to face evaluation was performed by me. I have personally examined the patient and discussed assessment and plan with the IM team. I reviewed the resident note and agree with the plan with exceptions as below. Syncope: Vasovagal versus orthostatic versus cardiogenic versus seizure Hyponatremia Status post IV fluids Orthostatic vital signs were negative however that happened after IV fluid resuscitation Ordered echocardiogram Ordered EEG Ordered PT evaluation Started salt tablets. Monitor sodium level
[2024-12-23 12:27] LABS: Lactate (Lactic Acid) 0.9 mMol/L (0.4-2.0)
[2024-12-23] MEDS: SODIUM CHLORIDE 1 GM TABLET PO ×2 (12:30→21:17)
[2024-12-23 14:36] LABS: Sodium 129 mMol/L (136-145)
--- NOTE | 2024-12-23 14:59 | PD.RESCONSUL ---
HPI Data of Consult Requesting Physician: Saul Wood DO Admitting Provider: Saul Wood DO Attending Provider: Saul Wood DO Primary Care Provider: Physician No Primary/Family Consult Narrative History of present illness: Patient is a 64-year-old male with past medical history of RICHARD, hyponatremia, and hypertension that presented to the ED after syncopal episode at work. Patient states he was working in the [employer] when he suddenly started falling over and lost consciousness. Patient was witnessed by coworkers to stated patient passed out for about 15 seconds. Patient did lose consciousness and was incontinent during episode. No reported seizure-like activity during events and patient denies any similar episodes ever happening before. Neurology consulted for EEG workup and seizure rule out. cc:: cc: Saul Wood DO Exam Vital Signs Temp Pulse Resp BP Pulse Ox O2 Del Method 97.0 F 78 19 140/75 H 96 Room Air 12/23/24 12:00 12/23/24 12:00 12/23/24 12:00 12/23/24 12:00 12/23/24 12:00 12/23/24 12:00 Narrative Exam General: AOx3, no acute distress, able to speak full sentences HEENT: Small contusion above forehead, NC/AT, mucous membranes moist, bilateral sclera anicteric Cardiovascular: regular rate and rhythm, S1/S2 present, no murmurs appreciated Pulmonary: clear to auscultation bilaterally, no rales/rhonchi/wheezes Abdominal: soft, non-tender, non-distended, no rebound/guarding, normal bowel sounds present Musculoskeletal: normal ROM, no peripheral edema Skin: warm and dry, intact, no rashes Neuro: CN II-XII intact, no focal deficits, strength 5 out of 5 bilaterally in upper and lower extremities, sensation grossly intact. Results Labs 12/23/24 05:30 12/23/24 22:12 Labs: Short CBC 12/23/24 Range/Units : WBC 4.9 D (3.8-10.6) Thou/mm3 Hgb 11.2 L (13.5-16.0) g/dL Hct 31.3 L (41.0-53.0) % Plt Count 218 D (140-440) Thou/mm3 BMP 12/22/24 12/23/24 12/23/24 18:30 05:30 09:10 Sodium 133 L 130 L 129 L Potassium 4.0 Chloride 98 Carbon Dioxide 24.5 BUN 7 L Creatinine 0.8 Glucose 81 D Calcium 8.7 12/23/24 13:58 Sodium 129 L Potassium Chloride Carbon Dioxide BUN Creatinine Glucose Calcium Cardiac Enzymes 12/22/24 12/22/24 Range/Units 14:48 18:30 Total Creatine Kinase 307 H (34-171) U/L Troponin I < 0.020 (0.0-0.045) ng/mL Liver Function 12/23/24 Range/Units 05:30 Total Bilirubin 0.9 (0.3-1.2) mg/dL AST 39 H (0-34) U/L ALT 42 (10-49) U/L Alkaline Phosphatase 53 (46-116) U/L Albumin 3.7 D (3.4-4.8) gm/dL ABG Interpretation ABG results: 12/22/24 09:02 VBG pH 7.47 VBG pCO2 32 L VBG pO2 54 VBG Base Excess 0 Quality Measures Quality Measures none Medications Home Medications and Allergies Home Medications ?Medication ?Instructions ?Recorded ?Confirmed ?Type azilsartan medoxomil 80 mg tablet 80 mg PO QDAY 12/17/24 12/23/24 History (Edarbi) doxazosin 2 mg tablet 2 mg PO QDAY 12/17/24 12/23/24 History metoprolol succinate 50 mg 50 mg PO QDAY 12/17/24 12/23/24 History tablet,extended release 24 hr Allergies Allergy/AdvReac Type Severity Reaction Status Date / Time No Known Allergies Allergy Verified 12/22/24 20:49 Visit Medications Acetaminophen (Acetaminophen 325 Mg Tablet) 650 mg PO Q6H PRN PRN Reason: PAIN OR FEVER > 100.4 Stop: 01/21/25 17:56 Hydrocodone Bitart/Acetaminophen (Hydrocodone/Apap 5/325 Tablet) 1 tab PO Q6HR PRN PRN Reason: PAIN SCALE 4-10(Mod-Sev Stop: 12/27/24 17:56 Last Admin: 12/23/24 12:30 Dose: 1 tab Dextrose (Dextrose 50%-Water Inj 50 Ml Syringe) 25 ml IV Q15MIN PRN PRN Reason: BG 50-70 responsive npo pt Stop: 01/21/25 20:38 Dextrose (Dextrose 50%-Water Inj 50 Ml Syringe) 50 ml IV Q15MIN PRN PRN Reason: BG <50 OR BG <70 & pt unresponsive Stop: 01/21/25 20:38 Doxazosin Mesylate (Doxazosin Mesylate 2 Mg Tablet) 2 mg PO HS [facility] Stop: 01/21/25 20:59 Last Admin: 12/22/24 22:56 Dose: 2 mg Folic Acid (Folic Acid 1 Mg Tablet) 1 mg PO BID [facility] Stop: 12/27/24 20:59 Last Admin: 12/23/24 09:10 Dose: 1 mg Glucagon (Glucagon Inj 1 Mg Vial) 1 mg IM Q15MIN PRN PRN Reason: BG <70, and no IV access Heparin Sodium (Porcine) (Heparin Sod Inj 5000 Unit/Ml Vial) 5,000 unit SC BID [facility] Stop: 01/05/25 20:59 Last Admin: 12/23/24 09:11 Dose: 5,000 unit Hydralazine HCl (Hydralazine Inj 20 Mg/Ml Vial) 10 mg IV Q6H PRN PRN Reason: SBP>180 AND DBP>100 Stop: 01/21/25 20:44 Lorazepam (Lorazepam 0.5 Mg Tablet) 0.5 mg PO Q4HR PRN PRN Reason: CIWA Score 2-6 Stop: 12/27/24 20:15 Lorazepam (Lorazepam 0.5 Mg Tablet) 1 mg PO Q4HR PRN PRN Reason: CIWA SCORE 7-11 Stop: 12/27/24 20:15 Lorazepam (Lorazepam 0.5 Mg Tablet) 2 mg PO Q4HR PRN PRN Reason: CIWA SCORE 12-15 Stop: 12/27/24 20:15 Lorazepam (Lorazepam 2 Mg/Ml Vial) 1 mg IV X1 PRN PRN Reason: Breakthrough Agitation Metoprolol Succinate (Metoprolol Succinate Xl 25 Mg Tabcr) 50 mg PO QDAY [facility] Stop: 01/21/25 20:49 Last Admin: 12/23/24 09:10 Dose: 50 mg Morphine Sulfate (Morphine Sulf Inj 10 Mg/Ml Vial) 2 mg IVP Q4HR PRN PRN Reason: BREAKTHROUGH PAIN Stop: 12/27/24 17:56 Last Admin: 12/22/24 18:27 Dose: 2 mg Ondansetron HCl (Ondansetron Inj 2 Mg/Ml Inj 2 Ml) 4 mg IV Q6H PRN; Protocol PRN Reason: NAUSEA OR VOMITING Stop: 01/21/25 17:56 Sodium Chloride (Sodium Chloride 1 Gm Tablet) 1 gm PO BID JOSEFA Stop: 01/22/25 11:44 Last Admin: 12/23/24 12:30 Dose: 1 gm Thiamine HCl (Thiamine 100 Mg Tablet) 100 mg PO BID JOSEFA Stop: 12/27/24 20:59 Last Admin: 12/23/24 09:13 Dose: 100 mg Discontinued Medications Diphtheria/Tetanus/Acell Pertussis (Diphth,Pertuss(Acell),Tet Vac 0.5 Ml Syr- Adult) 0.5 ml IMi .ONCE ONE Stop: 12/22/24 14:31 Last Admin: 12/22/24 14:58 Dose: Not Given Sodium Chloride (Ns) 1,000 mls @ 999 mls/hr IV .Q1H1M ONE Stop: 12/22/24 13:36 Last Infusion: 12/22/24 14:36 Dose: Infused Sodium Chloride (Ns) 1,000 mls @ 999 mls/hr IV .Q1H1M ONE Stop: 12/22/24 15:45 Last Infusion: 12/22/24 15:56 Dose: Infused Sodium Chloride (Ns) 1,000 mls @ 80 mls/hr IV .[id number] JOSEFA Stop: 12/23/24 18:14 Last Admin: 12/22/24 18:35 Dose: 80 mls/hr Dextrose (D5w) 1,000 mls @ 100 mls/hr IV .Q10H JOSEFA Stop: 12/23/24 05:29 Last Admin: 12/22/24 21:44 Dose: 100 mls/hr Morphine Sulfate (Morphine Sulf Inj 10 Mg/Ml Vial) 4 mg IVP X1 ONE Stop: 12/22/24 10:58 Last Admin: 12/22/24 11:03 Dose: 4 mg Ondansetron HCl (Ondansetron Inj 2 Mg/Ml Inj 2 Ml) 4 mg IV X1 ONE; Protocol Stop: 12/22/24 10:58 Last Admin: 12/22/24 11:03 Dose: 4 mg Assessment & Plan Plan #Syncope #Ground-level fall #Head injury CT head negative for acute changes Vasovagal VS arrhythmia VS orthostatic hypotension Vitals negative for orthostatic changes. Patient denies any seizure-like activity during event EEG pending Recommend cardiology workup given presentation #Hypertension #RICHARD #Hyponatremia Continue management per primary team Case discussed with attending Dr Vale Gr MD PGY3. Attending Provider Attestation/Addendum I independently reviewed the patient's chart and agreed with resident's findings, assessment and plan of care. Continue to monitor him for any further episodes, follow-up with EEG and echo.
--- NOTE | 2024-12-23 16:50 | PC.PT ---
PT eval only. Patient is xI and does not require further skilled PT intervention. Patient is safe to ambulate to the bathroom and in the halls with no DME and 1 staff assist for safety due to patient was admitted for a syncopal episode. RN made aware.
[2024-12-23 19:26] LABS: Sodium 130 mMol/L (136-145)
[2024-12-23] MEDS: DOXAZOSIN MESYLATE 2 MG TABLET PO (21:17)
[2024-12-23 23:00] LABS: Sodium 131 mMol/L (136-145)
--- NOTE | 2024-12-23 23:03 | PC.NURSE ---
ICU monito tech called patient had episode of bradycardia down to 49 HR. Saw the patient at bedside was sleeping, patient not c/o any chest pain, SOB. Informed Dr. Sosa regarding this, no new orders received.
[2024-12-24] VITALS (10 sets, daily range): BP systolic 142–168; BP diastolic 79–104; PULSE 56–74; RESP 15–20; TEMP 36.1–36.6; O2SAT 94–99
[2024-12-24 02:40] LABS: Sodium 131 mMol/L (136-145)
[2024-12-24 06:00] LABS: Basophils % (Auto) 0 % (0-2.5); Eosinophils # (Auto) 0.1 Thou/mm3 (0.0-0.5); Eosinophils % (Auto) 2 % (0-10); Hematocrit 30.2 % (41.0-53.0); Hemoglobin 10.5 g/dL (13.5-16.0); Immature Granulocytes % (Auto) 0 % (0-0); Immature Granulocytes Auto 0.01 Thou/mm3 (0.00-0.00); Lymphocytes # (Auto) 1.3 Thou/mm3 (1.0-4.8); Lymphocytes % (Auto) 37 % (10-50); Mean Corpuscular HGB Conc 34.8 g/dl (31.0-37.0); Mean Corpuscular Volume 92 fL (80-100); Monocytes # (Auto) 0.5 Thou/mm3 (0.0-0.8); Monocytes % (Auto) 13 % (0-12); Neutrophils # (Auto) 1.6 Thou/mm3 (1.8-7.7); Neutrophils % (Auto) 47 % (37-80); Nucleated Red Blood Cell % 0 /100 WBC (0); Platelet Count 242 Thou/mm3 (140-440); RDW Standard Deviation 42.1 fL (35.1-43.9); Red Blood Count 3.28 Miln/mm3 (4.50-5.90); White Blood Count 3.4 Thou/mm3 (3.8-10.6)
[2024-12-24 06:47] LABS: Alanine Aminotransferase 34 U/L (10-49); Albumin, Serum 3.7 gm/dL (3.4-4.8); Albumin/Globulin Ratio 1.3 (1.2-2.2); Alkaline Phosphatase 55 U/L (46-116); Anion Gap 8 (7-16); Aspartate Amino Transferase 30 U/L (0-34); BUN/Creatinine Ratio 10 Ratio (12-20); Bilirubin,Total 0.8 mg/dL (0.3-1.2); Blood Urea Nitrogen 8 mg/dL (9-23); Calcium 8.7 mg/dL (8.3-10.6); Calcium (Corrected) 8.9 mg/dL (8.5-10.1); Carbon Dioxide 26.5 mMol/L (20.0-31.0); Chloride 97 mMol/L (98-107); Creatinine (Component) 0.8 mg/dL (0.6-1.3); Estimated Creatinine Clearance 90.3 mL/min (>60); Globulin 2.8 gm/dL (2.3-3.5); Glucose 82 mg/dL (74-106); Magnesium 1.9 mg/dL (1.6-2.6); Osmolality,Calculated 259 (275-295); Phosphorous 4.3 mg/dL (2.4-5.1); Potassium 3.9 mMol/L (3.4-5.1); Sodium 131 mMol/L (136-145); Total Protein 6.5 gm/dL (5.7-8.2); eGFR > 60 See Note
[2024-12-24] MEDS: Magnesium Sulfate 1 gm Ivpb 1 GM/100 ML BAG IV (08:35)
[2024-12-24] MEDS: HEPARIN SOD INJ 5000 UNIT/ML VIAL SC (08:36)
[2024-12-24] MEDS: FOLIC ACID 1 MG TABLET PO (08:37)
[2024-12-24] MEDS: METOPROLOL SUCCINATE XL 25 MG TABCR 50 MG PO (08:37)
[2024-12-24] MEDS: SODIUM CHLORIDE 1 GM TABLET PO (08:37)
[2024-12-24] MEDS: THIAMINE 100 MG TABLET PO (08:37)
[2024-12-24] MEDS: HYDROcodone/APAP 5/325 TABLET 1 TAB PO (09:27)
[2024-12-24 10:00] LABS: Uric Acid 3.9 mg/dL (3.7-9.2)
--- NOTE | 2024-12-24 10:52 | ECHO_ITS ---
Transthoracic Echo Report Ht (in): 68 Wt (lb): 154 Exam Location: [facility] Status: Inpatient Sider: CARMELITA Mathis^^^^ Indications: Procedure Performed: BP: 130 / 72 HR: 64 Technical Quality: Fair MEASUREMENTS (Male / Female) Normal Values 2D ECHO LV Diastolic Diameter PLAX 4.6 cm 4.2 - 5.9 / 3.9 - 5.3 cm LV Systolic Diameter PLAX 3.1 cm IVS Diastolic Thickness 0.9 cm 0.6 - 1.0 / 0.6 - 0.9 cm LVPW Diastolic Thickness 0.9 cm 0.6 - 1.0 / 0.6 - 0.9 cm LV Relative Wall Thickness 0.4 LVOT Diameter 2.0 cm Aortic Root Diameter 3.4 cm LA Systolic Diameter LX 3.5 cm 3.0 - 4.0 / 2.7 - 3.8 cm LA Volume Index 28.7 cm?/m? 16 - 28 cm?/m? DOPPLER AV Peak Velocity 140.0 cm/s AV Peak Gradient 7.8 mmHg AV Mean Gradient 5.0 mmHg AV Velocity Time Integral 33.6 cm AI Peak Velocity 196.5 cm/s AI Peak Gradient 15.4 mmHg AI Pressure Half Time 812.5 ms LVOT Peak Velocity 99.8 cm/s LVOT Peak Gradient 4.0 mmHg LVOT Velocity Time Integral 26.8 cm LVOT Cardiac Index 2936.3 cm?/min?m? AV Area Cont Eq vti 2.5 cm? AV Area Cont Eq pk 2.2 cm? MV Area PHT 3.2 cm? Mitral E Point Velocity 53.2 cm/s Mitral A Point Velocity 64.6 cm/s Mitral E to A Ratio 0.8 LV E' Lateral Velocity 10.3 cm/s Mitral E to LV E' Lateral Ratio 5.2 LV E' Septal Velocity 8.4 cm/s Mitral E to LV E' Septal Ratio 6.4 PV Peak Velocity 79.8 cm/s PV Peak Gradient 2.5 mmHg RVOT Peak Velocity 45.1 cm/s FINDINGS Left Ventricle Normal left ventricular size, wall thickness, systolic function with no obvious regional wall motion abnormalities. There is grade I diastolic dysfunction of the left ventricle (impaired relaxation pattern). The left ventricular ejection fraction is normal, estimated at 60-65%. Right Ventricle The right ventricle is normal in size and systolic function. The estimated right ventricular systolic pressure, 22 mmHg. Left Atrium The left atrium is normal by two-dimensional, color flow and Doppler imaging with no structural abnormalities, no thrombus formation present. Right Atrium The right atrium is normal by two-dimensional imaging, color flow and Doppler imaging with no structural abnormalities, no thrombus formation present. Atrial Septum The interatrial septum appears normal with no evidence of a shunt. Aorta The aorta is normal by two-dimensional, color flow and Doppler interrogation. Mitral Valve Mild mitral annular calcification. Trace to mild mitral regurgitation. Aortic Valve Aortic valve sclerosis. Diffuse calcification of the aortic valve. Trace to mild aortic valve regurgitation. Tricuspid Valve There is mild tricuspid valve regurgitation. Pulmonic Valve The pulmonic valve is not well visualized. There is no significant pulmonic valve regurgitation. Vessels The pulmonary artery appears normal. The inferior vena cava pulmonary and hepatic veins appear normal. Pericardium The pericardium is normal by two-dimensional imaging. There is no significant pericardial effusion. CONCLUSIONS Indication: Syncope Normal LV size and function with an estimated EF of 60 to 65%. Stage I diastolic dysfunction. Normal RV size and function with an estimated RVSP of 22 mmHg. Mild TR. Mild MAC with trace to mild MR Kali Belle (Electronically Signed) Final Date: 24 December 2024 13:51
--- NOTE | 2024-12-24 12:31 | PC.SS ---
Patient Maximo Summers is a 64 Year old male admitted for Syncope. SS met with patient at bedside, patient was able to verify demographic information. Patient reports he lives at home with his , Siomara Summers who he reports is his surrogate decision maker [phone]. 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 Patient does not utilize any source of DME to asssit with ambulation. Patient is able to complete all ADL's independently. Pharmacy of choice is [facility] and PCP is [place].At time of discharge patient will return back home.
--- NOTE | 2024-12-24 13:12 | PD.RESPRO ---
Documentation for date of: 12/24/24 Exam Vital Signs Temp Pulse Resp BP Pulse Ox O2 Del Method 97.0 F 64 15 154/84 H 98 Room Air 12/24/24 12:00 12/24/24 12:00 12/24/24 12:00 12/24/24 12:00 12/24/24 12:00 12/24/24 12:00 Objective Labs 12/24/24 04:49 12/24/24 04:49 Labs: Laboratory Results - last 24 hr 12/23/24 12/23/24 12/23/24 13:58 18:40 22:12 WBC RBC Hgb Hct MCV MCH MCHC RDW Std Deviation Plt Count Neut % (Auto) Lymph % (Auto) [place] % (Auto) Eos % (Auto) Baso % (Auto) Neut # (Auto) Lymph # (Auto) [place] # (Auto) Eos # (Auto) Baso # (Auto) Immature Gran # (Auto) Absolute Nucleated RBC Immature Gran % Nucleated RBC % Sodium 129 L 130 L 131 L Potassium Chloride Carbon Dioxide Anion Gap BUN Creatinine Estim Creat Clear Calc eGFR BUN/Creatinine Ratio Glucose Calculated Osmolality Uric Acid Calcium Corrected Calcium Phosphorus Magnesium Total Bilirubin AST ALT Alkaline Phosphatase Total Protein Albumin Globulin Albumin/Globulin Ratio 12/24/24 12/24/24 02:13 04:49 WBC 3.4 L RBC 3.28 L Hgb 10.5 L Hct 30.2 L MCV 92 MCH 32.0 MCHC 34.8 RDW Std Deviation 42.1 Plt Count 242 Neut % (Auto) 47 Lymph % (Auto) 37 [place] % (Auto) 13 H Eos % (Auto) 2 Baso % (Auto) 0 Neut # (Auto) 1.6 L Lymph # (Auto) 1.3 [place] # (Auto) 0.5 Eos # (Auto) 0.1 Baso # (Auto) 0.0 Immature Gran # (Auto) 0.01 H Absolute Nucleated RBC 0.00 Immature Gran % 0 Nucleated RBC % 0 Sodium 131 L 131 L Potassium 3.9 Chloride 97 L Carbon Dioxide 26.5 Anion Gap 8 BUN 8 L Creatinine 0.8 Estim Creat Clear Calc 90.3 eGFR > 60 BUN/Creatinine Ratio 10 L Glucose 82 Calculated Osmolality 259 L Uric Acid 3.9 Calcium 8.7 Corrected Calcium 8.9 Phosphorus 4.3 Magnesium 1.9 Total Bilirubin 0.8 AST 30 ALT 34 Alkaline Phosphatase 55 Total Protein 6.5 Albumin 3.7 Globulin 2.8 Albumin/Globulin Ratio 1.3 ABG Interpretation ABG results: 12/22/24 09:02 VBG pH 7.47 VBG pCO2 32 L VBG pO2 54 VBG Base Excess 0 Quality Measures Quality Measures none Assessment & Plan Assessment Current Active Medications: Generic Name Dose Route Start Last Admin Trade Name Nabilq PRN Reason Stop Dose Admin Acetaminophen 650 mg 12/22/24 17:57 Acetaminophen 325 Mg Tablet PO 01/21/25 17:56 Q6H PRN PAIN OR FEVER > 100.4 Hydrocodone Bitart/Acetaminophen 1 tab 12/22/24 17:57 12/24/24 09:27 Hydrocodone/Apap 5/325 Tablet PO 12/27/24 17:56 1 tab Q6HR PRN Administration PAIN SCALE 4-10(Mod-Sev Dextrose 25 ml 12/22/24 20:39 Dextrose 50%-Water Inj 50 Ml Syringe IV 01/21/25 20:38 Q15MIN PRN BG 50-70 responsive npo pt Dextrose 50 ml 12/22/24 20:39 Dextrose 50%-Water Inj 50 Ml Syringe IV 01/21/25 20:38 Q15MIN PRN BG <50 OR BG <70 & pt unresponsive Doxazosin Mesylate 2 mg 12/22/24 21:00 12/23/24 21:17 Doxazosin Mesylate 2 Mg Tablet PO 01/21/25 20:59 2 mg HS JOSEFA Administration Folic Acid 1 mg 12/22/24 21:00 12/24/24 08:37 Folic Acid 1 Mg Tablet PO 12/27/24 20:59 1 mg BID JOSEFA Administration Glucagon 1 mg 12/22/24 20:39 Glucagon Inj 1 Mg Vial IM Q15MIN PRN BG <70, and no IV access Heparin Sodium (Porcine) 5,000 unit 12/22/24 21:00 12/24/24 08:36 Heparin Sod Inj 5000 Unit/Ml Vial SC 01/05/25 20:59 5,000 unit BID JOSEFA Administration Hydralazine HCl 10 mg 12/22/24 20:40 Hydralazine Inj 20 Mg/Ml Vial IV 01/21/25 20:44 Q6H PRN SBP>180 AND DBP>100 Lorazepam 0.5 mg 12/22/24 20:16 Lorazepam 0.5 Mg Tablet PO 12/27/24 20:15 Q4HR PRN CIWA Score 2-6 Lorazepam 1 mg 12/22/24 20:16 Lorazepam 0.5 Mg Tablet PO 12/27/24 20:15 Q4HR PRN CIWA SCORE 7-11 Lorazepam 2 mg 12/22/24 20:16 Lorazepam 0.5 Mg Tablet PO 12/27/24 20:15 Q4HR PRN CIWA SCORE 12-15 Lorazepam 1 mg 12/22/24 20:16 Lorazepam 2 Mg/Ml Vial IV X1 PRN Breakthrough Agitation Metoprolol Succinate 50 mg 12/22/24 20:50 12/24/24 08:37 Metoprolol Succinate Xl 25 Mg Tabcr PO 01/21/25 20:49 50 mg QDAY JOSEFA Administration Morphine Sulfate 2 mg 12/22/24 17:57 12/22/24 18:27 Morphine Sulf Inj 10 Mg/Ml Vial IVP 12/27/24 17:56 2 mg Q4HR PRN Administration BREAKTHROUGH PAIN Ondansetron HCl 4 mg 12/22/24 17:57 Ondansetron Inj 2 Mg/Ml Inj 2 Ml IV 01/21/25 17:56 Q6H PRN NAUSEA OR VOMITING Protocol Sodium Chloride 1 gm 12/23/24 11:45 12/24/24 08:37 Sodium Chloride 1 Gm Tablet PO 01/22/25 11:44 1 gm BID JOSEFA Administration Thiamine HCl 100 mg 12/22/24 21:00 12/24/24 08:37 Thiamine 100 Mg Tablet PO 12/27/24 20:59 100 mg BID JOSEFA Administration
--- NOTE | 2024-12-24 13:57 | PD.RESPRO ---
Documentation for date of: 12/24/24 Subjective Subjective Interval history: Patient seen and assessed at bedside. Patient states to be feeling well, and denies any more lightheadedness or dizziness. Patient has been ambulating well and denies any palpitations. Exam Vital Signs Temp Pulse Resp BP Pulse Ox O2 Del Method 97.0 F 64 15 154/84 H 98 Room Air 12/24/24 12:00 12/24/24 12:00 12/24/24 12:00 12/24/24 12:00 12/24/24 12:00 12/24/24 12:00 Narrative Exam General: AOx3, no acute distress, able to speak full sentences HEENT: Small contusion above forehead, NC/AT, mucous membranes moist, bilateral sclera anicteric Cardiovascular: regular rate and rhythm, S1/S2 present, no murmurs appreciated Pulmonary: clear to auscultation bilaterally, no rales/rhonchi/wheezes Abdominal: soft, non-tender, non-distended, no rebound/guarding, normal bowel sounds present Musculoskeletal: normal ROM, no peripheral edema Skin: warm and dry, intact, no rashes Neuro: CN II-XII intact, no focal deficits, strength 5 out of 5 bilaterally in upper and lower extremities, sensation grossly intact. Objective Labs 12/24/24 04:49 12/24/24 13:47 Labs: Laboratory Results - last 24 hr 12/23/24 12/23/24 12/23/24 13:58 18:40 22:12 WBC RBC Hgb Hct MCV MCH MCHC RDW Std Deviation Plt Count Neut % (Auto) Lymph % (Auto) [place] % (Auto) Eos % (Auto) Baso % (Auto) Neut # (Auto) Lymph # (Auto) [place] # (Auto) Eos # (Auto) Baso # (Auto) Immature Gran # (Auto) Absolute Nucleated RBC Immature Gran % Nucleated RBC % Sodium 129 L 130 L 131 L Potassium Chloride Carbon Dioxide Anion Gap BUN Creatinine Estim Creat Clear Calc eGFR BUN/Creatinine Ratio Glucose Calculated Osmolality Uric Acid Calcium Corrected Calcium Phosphorus Magnesium Total Bilirubin AST ALT Alkaline Phosphatase Total Protein Albumin Globulin Albumin/Globulin Ratio 12/24/24 12/24/24 02:13 04:49 WBC 3.4 L RBC 3.28 L Hgb 10.5 L Hct 30.2 L MCV 92 MCH 32.0 MCHC 34.8 RDW Std Deviation 42.1 Plt Count 242 Neut % (Auto) 47 Lymph % (Auto) 37 [place] % (Auto) 13 H Eos % (Auto) 2 Baso % (Auto) 0 Neut # (Auto) 1.6 L Lymph # (Auto) 1.3 [place] # (Auto) 0.5 Eos # (Auto) 0.1 Baso # (Auto) 0.0 Immature Gran # (Auto) 0.01 H Absolute Nucleated RBC 0.00 Immature Gran % 0 Nucleated RBC % 0 Sodium 131 L 131 L Potassium 3.9 Chloride 97 L Carbon Dioxide 26.5 Anion Gap 8 BUN 8 L Creatinine 0.8 Estim Creat Clear Calc 90.3 eGFR > 60 BUN/Creatinine Ratio 10 L Glucose 82 Calculated Osmolality 259 L Uric Acid 3.9 Calcium 8.7 Corrected Calcium 8.9 Phosphorus 4.3 Magnesium 1.9 Total Bilirubin 0.8 AST 30 ALT 34 Alkaline Phosphatase 55 Total Protein 6.5 Albumin 3.7 Globulin 2.8 Albumin/Globulin Ratio 1.3 ABG Interpretation ABG results: 12/22/24 09:02 VBG pH 7.47 VBG pCO2 32 L VBG pO2 54 VBG Base Excess 0 Quality Measures Quality Measures none Assessment & Plan Assessment Current Active Medications: Generic Name Dose Route Start Last Admin Trade Name Freq PRN Reason Stop Dose Admin Acetaminophen 650 mg 12/22/24 17:57 Acetaminophen 325 Mg Tablet PO 01/21/25 17:56 Q6H PRN PAIN OR FEVER > 100.4 Hydrocodone Bitart/Acetaminophen 1 tab 12/22/24 17:57 12/24/24 09:27 Hydrocodone/Apap 5/325 Tablet PO 12/27/24 17:56 1 tab Q6HR PRN Administration PAIN SCALE 4-10(Mod-Sev Dextrose 25 ml 12/22/24 20:39 Dextrose 50%-Water Inj 50 Ml Syringe IV 01/21/25 20:38 Q15MIN PRN BG 50-70 responsive npo pt Dextrose 50 ml 12/22/24 20:39 Dextrose 50%-Water Inj 50 Ml Syringe IV 01/21/25 20:38 Q15MIN PRN BG <50 OR BG <70 & pt unresponsive Doxazosin Mesylate 2 mg 12/22/24 21:00 12/23/24 21:17 Doxazosin Mesylate 2 Mg Tablet PO 01/21/25 20:59 2 mg HS JOSEFA Administration Folic Acid 1 mg 12/22/24 21:00 12/24/24 08:37 Folic Acid 1 Mg Tablet PO 12/27/24 20:59 1 mg BID JOSEFA Administration Glucagon 1 mg 12/22/24 20:39 Glucagon Inj 1 Mg Vial IM Q15MIN PRN BG <70, and no IV access Heparin Sodium (Porcine) 5,000 unit 12/22/24 21:00 12/24/24 08:36 Heparin Sod Inj 5000 Unit/Ml Vial SC 01/05/25 20:59 5,000 unit BID JOSEFA Administration Hydralazine HCl 10 mg 12/22/24 20:40 Hydralazine Inj 20 Mg/Ml Vial IV 01/21/25 20:44 Q6H PRN SBP>180 AND DBP>100 Lorazepam 0.5 mg 12/22/24 20:16 Lorazepam 0.5 Mg Tablet PO 12/27/24 20:15 Q4HR PRN CIWA Score 2-6 Lorazepam 1 mg 12/22/24 20:16 Lorazepam 0.5 Mg Tablet PO 12/27/24 20:15 Q4HR PRN CIWA SCORE 7-11 Lorazepam 2 mg 12/22/24 20:16 Lorazepam 0.5 Mg Tablet PO 12/27/24 20:15 Q4HR PRN CIWA SCORE 12-15 Lorazepam 1 mg 12/22/24 20:16 Lorazepam 2 Mg/Ml Vial IV X1 PRN Breakthrough Agitation Metoprolol Succinate 50 mg 12/22/24 20:50 12/24/24 08:37 Metoprolol Succinate Xl 25 Mg Tabcr PO 01/21/25 20:49 50 mg QDAY JOSEFA Administration Morphine Sulfate 2 mg 12/22/24 17:57 12/22/24 18:27 Morphine Sulf Inj 10 Mg/Ml Vial IVP 12/27/24 17:56 2 mg Q4HR PRN Administration BREAKTHROUGH PAIN Ondansetron HCl 4 mg 12/22/24 17:57 Ondansetron Inj 2 Mg/Ml Inj 2 Ml IV 01/21/25 17:56 Q6H PRN NAUSEA OR VOMITING Protocol Sodium Chloride 1 gm 12/23/24 11:45 12/24/24 08:37 Sodium Chloride 1 Gm Tablet PO 01/22/25 11:44 1 gm BID JOSEFA Administration Thiamine HCl 100 mg 12/22/24 21:00 12/24/24 08:37 Thiamine 100 Mg Tablet PO 12/27/24 20:59 100 mg BID JOSEFA Administration Plan #Syncope #Ground-level fall #Head injury CT head negative for acute changes Vasovagal VS arrhythmia Vitals negative for orthostatic changes. Patient denies any seizure-like activity during event EEG read pending Echo shows EF 60 to 65% #Hypertension #RICHARD #Hyponatremia Continue management per primary team Case discussed with attending Dr Vale Gr MD PGY3. Attending Provider Attestation/Addendum I personally have seen and examined the patient at the bedside and agree with resident's findings, assessment and plan of care. EEG is negative for epileptiform discharges. Stable for discharge home on current management. Follow-up in 2 weeks.
[2024-12-24] MEDS: ACETAMINOPHEN 325 MG TABLET 650 MG PO (14:20)
[2024-12-24 14:23] LABS: Sodium 131 mMol/L (136-145)
--- NOTE | 2024-12-24 16:05 | ESDS_ITS ---
<Statement entered by Daljit Hope MD - 12/24/24 17:37> I saw and examined the patient, and I agree with current management stated by Dr Christina MD,PGY1. Plan of care was discussed with the attending physician and resident physician. Disclaimer: Despite multiple revisions, due to the dictation software being used, the document bellow may not be free of grammatical errors including phonetic/typographic errors. However, this does not deter from our commitment to providing health care in the patient's best interest in mind. Dr. Herminia MD, PGY 2 Planned Discharge Date 12/24/24 DS: Providers Provider Date of admission: 12/22/24 17:57 Primary care physician: Physician No Primary/Family Admitting Provider: Saul Wood DO Attending Provider on Admission: Saurabh Armstrong MD Consults: 12/22/24 20:14 Consult to Neurology / Tele-Neurology Routine Comment: Syncopal event Consulting Provider: Matteo Collazo Instructions: No post-ictal state reported but did have episode of incontin ence during event. 12/22/24 20:38 Referral Physical Therapy Routine Comment: Physician Instructions: Attending Provider on DC: Jesús Vasquez MD Discharging Provider: Jesús Vasquez MD DS: Diagnosis Problem List Completed Was Problem List Reviewed/Reconciled?: Yes Hospital Course Hospital Course Hospital course: Maximo Summers is a 64-year-old male with a past medical history of hypertension who presents to the ED after syncopal episode leading to ground-level fall with head strike. Event was witnessed by coworker (not present at bedside), and reported that patient fell forward onto his head and was unconscious for 10 to 15 seconds without any seizure-like activity noted. Patient does not recall falling, was not confused afterwards, did not bite his lips or cheeks, but did have an episode of urinary incontinence. He does not recall any focal weakness or paresthesias prior to event. States that he has not had a history of syncopal events. Admitted for further management of chronic hyponatremia and workup for syncope. Throughout hospital stay, no additional syncopal episodes noted. Orthostatic v itals negative, although taken after given IVF. EKG showed normal sinus rhythm. EKG showed normal LV size and function with an estimated EF of 60 to 65%. Stage I diastolic dysfunction. EEG without evidence of seizures. CT head n.egative for acute hemorrhage, mass effect or midline shift. Neurology consulted and stable for discharge from their perspective. Regarding Na, first repeat increased from 1 26-1 33 and was given a liter of D5W. Afterwards, patient was started on salt tablets and fluid restriction and sodium stabilized at 131. Upon discharge, patient instructed to start taking salt tablets until follow-up with PCP, Dr. Wolfe. Also advised patient to avoid driving for at least a month given syncopal episode. Diagnoses during admission: #Syncope secondary to vasovagal vs seizure #Ground-level fall with head strike #Hypoosmolar hyponatremia #Alcohol dependence #Mild transaminitis #Secondary hypothyroidism #Pulmonary nodule Discharge instructions: - Start taking salt tablets daily, at least until you follow-up with your PCP - Follow-up with your PCP, Dr. Wolfe, within 1 week of discharge - Obtain echocardiogram outpatient for further work-up of syncope - Continue taking all other medications as prescribed - Avoid driving for a month due to episode of syncope - Return to the ED if symptoms worsen or recur Time Spent with Patient Time attestation: Total time spent providing and/or coordinating discharge services: Exam Vital Signs Temp Pulse Resp BP Pulse Ox O2 Del Method 97.0 F 64 15 154/84 H 98 Room Air 12/24/24 12:00 12/24/24 12:00 12/24/24 12:00 12/24/24 12:12/24/24 12:12/24/24 12:00 Narrative Exam General: AOx3, no acute distress, able to speak full sentences HEENT: Small contusion above forehead, NC/AT, mucous membranes moist, bilateral sclera anicteric Cardiovascular: regular rate and rhythm, S1/S2 present, no murmurs appreciated Pulmonary: clear to auscultation bilaterally, no rales/rhonchi/wheezes Abdominal: soft, non-tender, non-distended, no rebound/guarding, normal bowel sounds present Musculoskeletal: normal ROM, no peripheral edema Skin: warm and dry, intact, no rashes Neuro: CN II-XII intact, no focal deficits, strength 5 out of 5 bilaterally in upper and lower extremities, sensation grossly intact. Discharge Plan Plan Patient Disposition: HOME (Self Care) Care Plan Goals: - Start taking salt tablets daily, at least until you follow-up with your PCP - Follow-up with your PCP, Dr. Wolfe, within 1 week of discharge - Obtain echocardiogram outpatient for further work-up of syncope - Continue taking all other medications as prescribed - Avoid driving for a month due to episode of syncope - Return to the ED if symptoms worsen or recur Prescriptions/Referrals Prescriptions/Med Rec: New sodium chloride 1,000 mg Tablet,Soluble 1,000 mg PO BID 30 Days Qty: 60 0RF thiamine HCl (vitamin B1) 100 mg tablet 100 mg PO QDAY Qty: 60 0RF folic acid 1 mg tablet 1 mg PO QDAY Qty: 60 0RF Continued metoprolol succinate 50 mg tablet extended release 24 hr 50 mg PO QDAY Patient Comments: TAKE 1 TABLET BY MOUTH AT BEDTIME doxazosin 2 mg tablet 2 mg PO QDAY Patient Comments: TAKE 1 TABLET BY MOUTH DAILY Edarbi 80 mg tablet 80 mg PO QDAY Patient Comments: TAKE 1 TABLET BY MOUTH DAILY Referrals: No Primary/Family,Physician [Primary Care Provider] - Nadya Wolfe MD [Physician] - Outpatient Orders (i.e. Home Health, Labs, Imaging): Basic Metabolic Panel (Routine) Timeframe: [id number] Location: Determined by Patient Ordered By: Daljit Hope Patient/Caregiver Discharge Instructions Education Materials: What Is Syncope?, Hyponatremia Dc Print Language: Turkmen Stand Alone Forms: Caitlyn Award Info., Patient Portal Info Letter Discharge Order Discharge Orders: Discharge (Routine); Ordered 12/24/24 Ordered By: Daljit Hope Quality Discharge Quality Measures VTE prophylaxis Attestestation MD Attestation I reviewed labs, imaging, EKG, home medications and prior available records. Face to face evaluation was performed by me. I have personally examined the patient and discussed assessment and plan with the IM team. I reviewed the resident note and agree with the plan with exceptions as below. Syncope: Vasovagal versus orthostatic versus cardiogenic versus seizure Hyponatremia, improved Status post IV fluids Orthostatic vital signs were negative however that happened after IV fluid resuscitation Ordered echocardiogram: Showed preserved EF with no pertinent valve abnormalities Ordered EEG: Showed no epileptic activities Continue salt tablets. Monitor sodium level in 1 week Time spent is 40 minutes. More than 50% of the time was spent on patient education and coordination of care.
[2024-12-24] MEDS: hydrALAZINE HCL 10 MG TABLET PO (17:30)
[2024-12-31 06:40] LABS: Osmolality, Serum* 267 mOsm/kg (278-305); Osmolality, Urine* 175 mOsm/kg (50-1200)
== END 2024-12-24 18:12 | disposition home or self-care (01) | DRG 641 ==
LOC: SERX 14:35 → SERHOLD 18:34 → S3SX 12-23 06:08 → SERHOLD 12-23 06:08
PROVIDERS: Student in an Organized Health Care Education/Training Program; Admitting Provider Student in an Organized Health Care Education/Training Program; Emergency Provider Emergency Medicine; Visit Provider Student in an Organized Health Care Education/Training Program
DX: E87.1 Hypo-osmolality and hyponatremia (principal); R55 Syncope and collapse; E87.4 Mixed disorder of acid-base balance; I10 Essential (primary) hypertension; R15.9 Full incontinence of feces; R91.1 Solitary pulmonary nodule; R32 Unspecified urinary incontinence; S00.93XA Contusion of unspecified part of head, initial encounter; G47.33 Obstructive sleep apnea (adult) (pediatric); K76.0 Fatty (change of) liver, not elsewhere classified; E03.8 Other specified hypothyroidism; F10.20 Alcohol dependence, uncomplicated; W18.30XA Fall on same level, unspecified, initial encounter
CPT/HCPCS: 36415; 70450; 71045; 71275; 76705; 80053; 80307; 81001; 82550; 82803; 83605; 83690; 83735; 83880; 83930; 83935; 84100; 84295; 84300; 84436; 84443; 84484; 84550; 85025; 85610; 87040; 93005; 93225; 93306; 95816; 96361; 96372; 96374; 96375; 96376; 97161; 99285; A4649; J1643; J2270; J2405; J3475; J7030; J7070; Q9967; A9270

== ENCOUNTER → 2025-01-09 | Outpatient (CLI) | payer BC, SELFPAY ==
--- NOTE | 2025-01-09 13:34 | XR_ITS ---
Examination: CT maxillofacial, without intravenous contrast. 2-D sagittal reconstructions. 3-D reconstructions. Date and time of exam:January 09, 2025 1402 hrs. Indications: Chronic sinus pressure and pain several months CTDI: vol (mGy):7.67 DLP: (mGycm):108 Technique: Multiple axial images of maxillofacial region, 3.0 mm slice thickness. 2-D sagittal and coronal reconstructions. 3-D reconstructions. Low dose protocols were performed. One or more of the following dose reduction techniques were used; automated exposure control, adjustment of the mA and/or KV according to patient size, use of iterative reconstruction technique. Findings: Total opacification left frontal air cells Total opacification left ethmoid air cells and left nasal airway Total opacification left maxillary antrum Occlusion of the ostiomeatal complexes Prominent mucosal disease in the right maxillary antrum Significant sphenoid sinus disease Impression: Chronic sinusitis, severe left sinusitis.
== END | disposition home or self-care (01) ==
LOC: SMRI 13:28
PROVIDERS: PCP Internal Medicine; Referring Provider Internal Medicine; Visit Provider Internal Medicine
DX: J32.8 Other chronic sinusitis (principal)
CPT/HCPCS: 70486

== ENCOUNTER → 2025-01-09 | Outpatient (CLI) | payer BC, SELFPAY ==
[2025-01-09 10:19] LABS: Collection Type, Urine Clean Catch; Squamous Epithelial Cell,Urine 0 /hpf (0-5)
[2025-01-09 10:48] LABS: Bilirubin,Urine Negative (Negative); Blood,Urine Negative (Negative); Clarity,Urine Clear (Clear/Hazy); Color,Urine Lt-Yellow (Lt Yel-Yel); Glucose, Urine Negative (Negative); Ketones,Urine Negative (Negative); Leukocyte Esterase,Urine Negative (Negative); Nitrite,Urine Negative (Negative); Protein,Urine Negative (Neg - Trace); RBC,Urine 3 /hpf (0-3); Specific Gravity,Urine 1.018 (1.001-1.035); Urobilinogen,Urine Negative mg/dL (0.0-1.0); WBC,Urine 1 /hpf (0-5)
[2025-01-09 10:54] LABS: Anion Gap 6 (7-16); BUN/Creatinine Ratio 14 Ratio (12-20); Blood Urea Nitrogen 13 mg/dL (9-23); Calcium 8.7 mg/dL (8.3-10.6); Calcium (Corrected) 8.7 mg/dL (8.5-10.1); Carbon Dioxide 25.2 mMol/L (20.0-31.0); Chloride 98 mMol/L (98-107); Creatinine (Component) 0.9 mg/dL (0.6-1.3); Glucose 88 mg/dL (74-106); Osmolality,Calculated 258 (275-295); Phosphorous 4.1 mg/dL (2.4-5.1); Potassium 4.7 mMol/L (3.4-5.1); Sodium 129 mMol/L (136-145); eGFR > 60 See Note
== END | disposition home or self-care (01) ==
PROVIDERS: PCP Internal Medicine; Referring Provider Internal Medicine; Visit Provider Internal Medicine
DX: I10 Essential (primary) hypertension (principal)
CPT/HCPCS: 36415; 80069; 81001